=== PATIENT | female | born 1995 | race Caucasian/White ===

== ENCOUNTER 2020-07-25 12:56 | Emergency (ER) | payer OTHER, SELFPAY ==
--- NOTE | ~2020-07-25 | XR_ITS ---
EXAMINATION: XR knee RT min 4V EXAM DATE: 07/25/2020 13:18 INDICATION: Right knee pain x1 wk no injury then knee went out yesterday. TECHNIQUE: Right knee lateral, frontal AP, frontal PA tunnel, sunrise projections. There is no prior study for comparison. FINDINGS: No evidence osteochondral defect or joint body in the right knee joint. There are no acut e fractures or dislocations identified. There is no subcutaneous gas. The soft tissue is unremarkab le. There are no radiopaque foreign bodies. No joint effusion. IMPRESSION: Unremarkable right knee exam. Reviewed, dictated and finalized at location A. L [employer] INSPECTOR
[2020-07-25 13:05] VITALS: BP 132/77; PULSE 93; RESP 16; TEMP 36.6; O2SAT 99
--- NOTE | 2020-07-25 13:39 | ED.GENADULT ---
HPI - General Adult General Chief complaint: Extremity Problem,Nontraumatic Stated complaint: rt knee pain Time Seen by Provider: 07/25/20 13:40 Source: patient and RN notes reviewed Mode of arrival: ambulatory Limitations: no limitations History of Present Illness HPI narrative: 24-year-old female presents with complains of right anterior intermittent knee pain for the past 7 days. Viviana reports increase pain over the past 24 hours in RT knee when she was walking up stairs and knee gave out. Ibuprofen 800mg (last on 07/24/2020 at 14:30) and viviane wrap without relief. No known injury. No radiation of pain. No numbness or tingling, or bleeding. No swelling. No loss of mobility. Exacerbating factor consist of bearing weight. No fever or chills. LMP unknown due to Depo-Provera. Remains active. The patient reports she have not been diagnosed with COVID-19. The patient reports she is not waiting for the results of a COVID-19 lab test. The patient reports she do not have chills, weakness, or fatigue. The patient reports she do not have a new or worsening cough or shortness of breath. Denies chest pain. The patient reports she do not have any rhinorrhea, congestion, sore throat, loss of taste or smell, nausea, vomiting, abdominal pain, and diarrhea. Tolerating po intake well. Denies recent traveling. Denies concerns for COVID-19 or exposures been home with limited outdoor exposure except for essential household needs, work, and return home. At this time, patient is not suspected of having COVID-19. Some parts of this dictation were generated by voice recognition software and may contain typographical and/or grammatical inaccuracies. Related Data Home Medications Medication Instructions Recorded Confirmed medroxyprogesterone [Depo-Provera] mg IM 06/04/19 Allergies Allergy/AdvReac Type Severity Reaction Status Date / Time amoxicillin Allergy Unknown Hives Verified 06/11/19 08:21 cefdinir Allergy Unknown Hives Verified 06/11/19 08:21 clindamycin Allergy Unknown Hives Verified 06/11/19 08:21 latex Allergy Unknown Hives, Verified 06/11/19 08:21 Swelling clavulanic acid Allergy Hives Verified 06/11/19 08:21 [From Augmentin] Review of Systems Review of Systems: Narrative: CONSTITUTIONAL: Denies fever, chills, sweats. EYES: Denies visual changes, redness, discharge. ENT: Denies rhinorrhea, congestion, sore throat, otalgia. CARDIOVASCULAR: Denies chest pain, palpitations, edema. RESPIRATORY: Denies dyspnea, wheezing, cough. GASTROINTESTINAL: Denies abdominal pain, nausea, vomiting, diarrhea. SKIN: Denies rash or itching. MUSCULOSKELETAL: Denies acute back pain or myalgia. Complains of right anterior intermittent knee pain. NEUROLOGIC: Denies numbness or focal weakness. PSYCHIATRIC: Denies anxiety or depression. All other systems reviewed & are unremarkable except as noted in HPI and below. [facility] Past Medical History Medical History (Updated 07/25/20 @ 14:38 by YANICK Art) Abnormal laboratory test result Concussion Cough Elevated LFTs Low TSH level Torn meniscus Left knee Vitamin D deficiency Surgical History Surgical History (Updated 07/25/20 @ 14:38 by YANICK Art) History of arthroscopic knee surgery Left for torn meniscus [place] teeth extracted Family History Family History (Updated 07/25/20 @ 14:39 by YANICK Art) Grandparent Carcinoma of colon Family history of lymphoma Father Alive and well Mother Alive and well Social History Social History (Updated 07/25/20 @ 14:39 by YANICK Art) Smoking status: Never smoker Tobacco type: cigarettes Second hand tobacco smoke exposure: No Additional smoking assessment comments: 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 Alcohol intake: current Substance use: never Substance use type: does not use Living arrangements: other Additional living arrangements comments: Patient and he
== END 2020-07-25 13:59 | disposition home or self-care (01) ==
PROVIDERS: Emergency Provider Nurse Practitioner Family
DX: M25.561 Pain in right knee (principal)
CPT/HCPCS: 73564; 99213; G0463

== ENCOUNTER 2021-04-22 15:05 | Emergency (ER) | payer OTHER, SELFPAY ==
--- NOTE | ~2021-04-22 | XR_ITS ---
EXAMINATION: XR finger 5th RT min 2V DATE: 04/22/2021 15:36 INDICATION: Right hand fifth digit pain. TECHNIQUE: 4 views of right hand fifth digit were obtained. COMPARISON: Right hand radiographs 06/24/2008 FINDINGS: Bone alignment is normal. No fracture. Joint spaces are well maintained. IMPRESSION: 1. No fracture. Reviewed, dictated and finalized at location A. ICAL OB IMPRESSION: 1. No fracture.
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
[2021-04-22 15:12] VITALS: BP 123/76; PULSE 65; RESP 12; TEMP 36.5; O2SAT 100
== END 2021-04-22 16:13 | disposition home or self-care (01) ==
PROVIDERS: Emergency Provider Nurse Practitioner; PCP Family Medicine
DX: J40 Bronchitis, not specified as acute or chronic (principal); J32.9 Chronic sinusitis, unspecified; S69.91XA Unspecified injury of right wrist, hand and finger(s), initial encounter; Z20.822 Contact with and (suspected) exposure to COVID-19; X58.XXXA Exposure to other specified factors, initial encounter
CPT/HCPCS: 73140; 87426; 99213; C9803; G0463

== ENCOUNTER 2021-05-11 10:24 | Emergency (ER) | payer OTHER, SELFPAY ==
[2021-05-11 10:30] VITALS: BP 130/74; PULSE 74; RESP 16; TEMP 36.8; O2SAT 100
--- NOTE | 2021-05-11 10:31 | ED.EYEPROB ---
HPI - Eye Problem General Chief complaint: Eye Problems Stated complaint: Eye Pain Time Seen by Provider: 05/11/21 10:36 Source: patient and RN notes reviewed Mode of arrival: ambulatory Limitations: no limitations History of Present Illness HPI Narrative: 25-year-old female presents with concern for left eye redness, irritation, itchiness, pain, green drainage. Reports she woke up this morning with the symptoms. She reports that she wears contact lenses and occasionally sleeps in them, she did not sleep in her contact lenses last night or the night before. She reports she is not currently wearing her contact lenses so her vision is not corrected. She denies injury or trauma. She reports chronic nasal congestion and rhinorrhea for which she takes [id number] medications. MD chief complaint: eye pain Related Data Allergies Allergy/AdvReac Type Severity Reaction Status Date / Time amoxicillin Allergy Unknown Hives Verified 04/22/21 15:13 cefdinir Allergy Unknown Hives Verified 04/22/21 15:13 clindamycin Allergy Unknown Hives Verified 04/22/21 15:13 latex Allergy Unknown Hives, Verified 04/22/21 15:13 Swelling clavulanic acid Allergy Hives Verified 04/22/21 15:13 [From Augmentin] Review of Systems Review of Systems: CONSTITUTIONAL: Denies malaise, chills, sweats, or fever. EYES: Denies visual changes. Reports left eye redness, irritation, discharge. ENT: Reports chronic rhinorrhea, congestion. Denies sinus pain, otalgia or sore throat. SKIN: Denies skin rash or itching. NEUROLOGIC: Denies numbness, weakness, or headache. PSYCHIATRIC: Denies anxiety or depression. All systems reviewed & are unremarkable except as noted in HPI and below PMFSH Past Medical History Medical History (Updated 05/11/21 @ 10:44 by Shena Parks NP) Abnormal laboratory test result Concussion Cough Elevated LFTs Low TSH level Torn meniscus Left knee Vitamin D deficiency Surgical History Surgical History (Updated 07/25/20 @ 14:38 by YANICK Art) History of arthroscopic knee surgery Left for torn meniscus [place] teeth extracted Family History Family History (Updated 07/25/20 @ 14:39 by YANICK Art) Grandparent Carcinoma of colon Family history of lymphoma Father Alive and well Mother Alive and well Social History Social History (Updated 07/25/20 @ 14:39 by YANICK Art) Smoking status: Never smoker Tobacco type: cigarettes Second hand tobacco smoke exposure: No Additional smoking assessment comments: 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 Substance use: never Substance use type: does not use Additional living arrangements comments: Patient and her boyfriend live together. Gender identity (if verbalized by the patient): Female Sexual Orientation (if Verbalized by the Patient): Straight or Heterosexual Comments At time of signature, agree with nursing past medical, surgical, social and family history. There is no relevant family history pertinent to the presenting complaint Exam Narrative: GENERAL: Well-appearing, well-nourished, and in no acute distress. HEAD: Normocephalic, atraumatic. EYES: PERRLA, right sclera clear, and EOMI. No nystagmus. Left conjunctivae injected, sclera injected, green drainage noted. Upper and lower eyelid unremarkable, no periorbital edema noted ENT: Nares clear, turbinates pink, no rhinorrhea or epistaxis. Mucous membranes moist. TM pearly garza with sharp light reflex bilaterally; no tragal tenderness. NECK: Supple. CHEST: No respiratory distress. Speaks in full sentences. HEART: Regular rate and rhythm. SKIN: Warm, dry, no visible rash. NEURO: Alert and oriented x3. PSYCH: Normal mood and affect Course Course Emergency Course: Patient is aware of diagnosis, understands and agrees to treatment plan. Anticipatory guidance given. Patient agrees to follow-up as di
== END 2021-05-11 10:51 | disposition home or self-care (01) ==
PROVIDERS: Emergency Provider Nurse Practitioner; PCP Family Medicine
DX: H10.32 Unspecified acute conjunctivitis, left eye (principal)
CPT/HCPCS: 99213; G0463

== ENCOUNTER 2021-07-30 17:01 | Emergency (ER) | payer OTHER, SELFPAY ==
[2021-07-30 17:11] VITALS: BP 130/76; PULSE 90; RESP 16; TEMP 36.8; O2SAT 100
[2021-07-30 17:21] VITALS: BP 130/76; PULSE 90; RESP 16; TEMP 36.8; O2SAT 100
--- NOTE | 2021-07-30 17:29 | ED.FEMALEGU ---
HPI - Female Genitourinary General Chief complaint: Urogenital-Female Stated complaint: kidney stone pain left side Time Seen by Provider: 07/30/21 17:30 Source: patient, RN notes reviewed and old records reviewed Mode of arrival: ambulatory Limitations: no limitations History of Present Illness HPI Narrative: 25 year old female who presents to [facility] care with complaints of left flank pain since last evening with patient verbalizing history of having kidney stones in the past. Patient reports that she has not had any fevers, chills or sweats, denies any pain or burning with urination or any frequency of urination, no nausea or vomiting. Patient reports that she has noted urine to be somewhat darker but has not noted any odor. Patient reports that her pain is 7-8/10 and is sharp to left flank area with no suprapubic pain, nausea or vomiting or radiation of pain to her abdomen. MD elicited complaint: flank pain (left) Pertinent past history: other (reports previous kidney stones) Onset (ago): day(s) (1) Location of symptoms: flank (left) Severity scale (1-10): 7 Quality of pain: sharp Consistency: constant Vaginal discharge: none Vaginal bleeding: none Urinary symptoms: Flank Pain Exacerbating factors: none Associated symptoms: denies other symptoms Treatment prior to arrival: none Sexual activity: Yes Patient : No Possible : other (depo shot) Related Data Home Medications Medication Instructions Recorded Confirmed medroxyprogesterone [Depo-Provera 150 mg IM Q3M 07/30/21 07/30/21 Contraceptive] Allergies Allergy/AdvReac Type Severity Reaction Status Date / Time amoxicillin Allergy Unknown Hives Verified 07/30/21 17:12 cefdinir Allergy Unknown Hives Verified 07/30/21 17:12 clindamycin Allergy Unknown Hives Verified 07/30/21 17:12 latex Allergy Unknown Hives, Verified 07/30/21 17:12 Swelling clavulanic acid Allergy Hives Verified 07/30/21 17:12 [From Augmentin] Review of Systems Review of Systems: CONSTITUTIONAL: Denies fever, chills, or sweats. EYES: Denies visual changes, redness, or discharge. ENT: Denies rhinorrhea, congestion, sore throat, or otalgia. CARDIOVASCULAR: Denies chest pain, palpitations, or edema. RESPIRATORY: Denies cough or dyspnea. GASTROINTESTINAL: Denies abdominal pain, nausea, vomiting, or diarrhea. GENITOURINARY: Denies dysuria or hematuria, states that urine is darker in color, denies any blood or any odor SKIN: Denies rash or itching. MUSCULOSKELETAL: Positive for left flank pain, no joint pain, or myalgia. NEUROLOGIC: Denies headache, numbness, or weakness. PSYCHIATRIC: Denies anxiety or depression. All systems reviewed & are unremarkable except as noted in HPI and below PMFSH Past Medical History Medical History Abnormal laboratory test result Concussion Cough Elevated LFTs Low TSH level Surveillance for Depo-Provera contraception Torn meniscus Left knee Vitamin D deficiency Surgical History Surgical History History of arthroscopic knee surgery Left for torn meniscus [place] teeth extracted Family History Family History Grandparent Carcinoma of colon Family history of lymphoma Father Alive and well Mother Alive and well Social History Social History Smoking status: Never smoker Tobacco type: cigarettes Second hand tobacco smoke exposure: No Additional smoking assessment comments: 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 Substance use: never Substance use type: does not use Additional living arrangements comments: Patient and her boyfriend live together. Gender identity (if verbalized by the patient): Female Sexual Orientation (if Verbalized by the Patient
== END 2021-07-30 17:52 | disposition home or self-care (01) ==
PROVIDERS: Emergency Provider Registered Nurse
DX: R10.9 Unspecified abdominal pain (principal); Z87.442 Personal history of urinary calculi
CPT/HCPCS: 81003; 99213; G0463

== ENCOUNTER 2022-03-25 14:01 | Emergency (ER) | payer OTHER, SELFPAY ==
[2022-03-25 14:08] VITALS: BP 135/86; PULSE 81; RESP 20; TEMP 36.8; O2SAT 100
--- NOTE | 2022-03-25 14:11 | ED.URI ---
HPI - URI/Sore Throat General Chief Complaint: Upper Respiratory Infection Stated Complaint: CONGESTION/VOMITING/BODY ACHES/CHILLS Time Seen by Provider: 03/25/22 14:11 Source: patient Mode of arrival: ambulatory Limitations: no limitations History of Present Illness HPI Narrative: 26-year-old female presents with complaint of congestion, cough, body aches chills, nausea for 5 days. Afebrile. Denies diarrhea. Reports that she did vomit could be due to not eating. No chest pain or shortness of breath. No sick contacts. Started taking DayQuil NyQuil severe last night. All systems reviewed and negative except as noted above. Related Data Allergies Allergy/AdvReac Type Severity Reaction Status Date / Time amoxicillin Allergy Unknown Hives Verified 03/25/22 14:09 cefdinir Allergy Unknown Hives Verified 03/25/22 14:09 clindamycin Allergy Unknown Hives Verified 03/25/22 14:09 latex Allergy Unknown Hives, Verified 03/25/22 14:09 Swelling clavulanic acid Allergy Hives Verified 03/25/22 14:09 [From Augmentin] Review of Systems Review of Systems: CONSTITUTIONAL: Denies fever. Reports chills, or sweats, fatigue. EYES: Denies visual changes, redness, or discharge. ENT:. Reports rhinorrhea, congestion, sore throat, or otalgia. CARDIOVASCULAR: Denies chest pain, palpitations, or edema. RESPIRATORY: Reports cough. Denies dyspnea. GASTROINTESTINAL: Denies abdominal pain, nausea, vomiting, or diarrhea. GENITOURINARY: Denies dysuria or hematuria. SKIN: Denies rash or itching. MUSCULOSKELETAL: Denies back pain, joint pain. Reports myalgia. NEUROLOGIC: Denies headache, numbness, or weakness. PSYCHIATRIC: Denies anxiety or depression. All other systems reviewed are negative, except as documented in HPI. [facility] Past Medical History Medical History Abnormal laboratory test result Concussion Cough Elevated LFTs Low TSH level Surveillance for Depo-Provera contraception Torn meniscus Left knee Vitamin D deficiency Surgical History Surgical History History of arthroscopic knee surgery Left for torn meniscus [place] teeth extracted Family History Family History Grandparent Carcinoma of colon Family history of lymphoma Father Alive and well Mother Alive and well Social History Social History (Updated 09/13/21 @ 09:05 by Luisa Nichols MA) Smoking status: Never smoker Tobacco type: cigarettes Second hand tobacco smoke exposure: No Additional smoking assessment comments: 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 There is no relevant family history pertinent to the presenting complaint. Exam Narrative: GENERAL: This is a well-nourished, well-developed patient, in no apparent distress. HEAD: normocephalic, atraumatic. EYES: PERRL. Sclera clear/white. Vision is grossly intact. EARS: External ears normal, auditory canals clear and without drainage, TMs normal without perforation. Hearing grossly intact. NOSE: External nose normal with clear nasal drainage, no erythema or swelling to the ears. THROAT: Mucous membranes moist, mild erythema to posterior pharynx. NECK: Neck supple, non-tender without lymphadenopathy, masses or thyromegaly. CARDIOVASCULAR: Regular rate and rhythm without murmurs, gallops, or rubs. RESPIRATORY: Clear to auscultation. Breath sounds equal bilaterally. No wheezes, rales, or rhonchi. SKIN: warm, Dry, intact with no suspicious lesions or jayme
== END 2022-03-25 14:24 | disposition home or self-care (01) ==
PROVIDERS: Emergency Provider Nurse Practitioner Family
DX: J06.9 Acute upper respiratory infection, unspecified (principal)
CPT/HCPCS: 99211; G0463

== ENCOUNTER 2023-03-31 03:56 | Emergency (ER) | payer BC, SELFPAY ==
--- NOTE | ~2023-03-31 | XR_ITS ---
Right foot Technique: AP, oblique, and lateral views were obtained. Clinical History: Injury Findings: There is an oblique, minimally displaced fracture of the distal portion of the fifth proxim al phalanx. No intra-articular extension. Joint spaces are preserved without erosive or degenerative change. Soft tissues are unremarkable. Impression: Oblique, minimally displaced fracture the distal shaft of the fifth proximal phalanx. Reviewed, dictated and finalized at location . Impression: Oblique, minimally displaced fracture the distal shaft of the fifth proximal ph alanx.
[2023-03-31 04:00] VITALS: BP 138/99; PULSE 58; RESP 20; TEMP 36.7; O2SAT 99
--- NOTE | 2023-03-31 04:34 | ED.GENADULT ---
HPI - General Adult General Chief complaint: Extremity Injury, Lower Stated complaint: toe injury Time Seen by Provider: 03/31/23 04:11 History of Present Illness HPI narrative: Patient was 7-year-old female who presents the emergency department with chief complaint of right foot pain. Patient reports that she hit her right little toe against a kitchen island and reports that she has pain and swelling in her right little toe. Patient reports pain with range of motion pain with walking. Related Data Home Medications Medication Instructions Recorded Confirmed lisdexamfetamine 20 mg capsule mg PO 11/21/22 03/16/23 (Vyvanse) Allergies Allergy/AdvReac Type Severity Reaction Status Date / Time amoxicillin Allergy Unknown Hives Verified 03/31/23 04:05 cefdinir Allergy Unknown Hives Verified 03/31/23 04:05 clindamycin Allergy Unknown Hives Verified 03/31/23 04:05 latex Allergy Unknown Hives, Verified 03/31/23 04:05 Swelling clavulanic acid Allergy Hives Verified 03/31/23 04:05 [From Augmentin] Review of Systems Review of Systems: A 10 system review of systems was completed on the patient and is negative except for what is stated in the HPI. Nursing and ancillary documentation was reviewed. [facility]LY [facility], [facility] Past Medical History Medical History Abnormal laboratory test result Concussion Cough Elevated LFTs Low TSH level Surveillance for Depo-Provera contraception Torn meniscus Left knee Vitamin D deficiency Surgical History Surgical History History of arthroscopic knee surgery Left for torn meniscus [place] teeth extracted Family History Family History Grandparent Carcinoma of colon Family history of lymphoma Father Alive and well Mother Alive and well Social History Social History Smoking status: Never smoker Tobacco type: cigarettes Second hand tobacco smoke exposure: No Additional smoking assessment comments: 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 HEAD: Normocephalic, atraumatic. EYES: PERRLA and EOMI. ENT: Nares clear, no rhinorrhea or epistaxis. Mucous membranes moist. NECK: Supple. CHEST: Clear to auscultation. No respiratory distress. HEART: Regular rate and rhythm. No murmur heard. Normal peripheral pulses. ABDOMEN: Soft, nontender, nondistended, normal active bowel sounds. EXTREMITIES: Normal range of motion. No edema. There is tenderness to palpation at the base of the fifth proximal phalanx SKIN: Warm, dry, no rash. NEURO: No focal deficits. Alert and oriented x3. PSYCH: Normal mood and affect. Course Vital Signs Vital signs: Vital Signs Temperature 36.7 C 03/31/23 04:00 Pulse Rate 58 L 03/31/23 04:00 Respiratory Rate 20 03/31/23 04:00 Blood Pressure 138/99 H 03/31/23 04:00 Pulse Oximetry 99 03/31/23 04:00 Oxygen Delivery Room Air 03/31/23 04:00 Temperature 36.7 C 03/31/23 04:00 Pulse Rate 58 L 03/31/23 04:00 Respiratory Rate 20
== END 2023-03-31 04:54 | disposition home or self-care (01) ==
PROVIDERS: Emergency Provider Emergency Medicine; PCP Internal Medicine
DX: S92.511A Displaced fracture of proximal phalanx of right lesser toe(s), initial encounter for closed fracture (principal); W22.09XA Striking against other stationary object, initial encounter
CPT/HCPCS: 73630; 99284

== ENCOUNTER 2023-07-06 16:35 | Emergency (ER) | payer BC, SELFPAY ==
--- NOTE | 2023-07-06 16:39 | ED.GENADULT ---
HPI - General Adult General Chief complaint: Upper Respiratory Infection Stated complaint: COUGH/HEADACHE/RUNNY NOSE/SORE THROAT Source: patient, RN notes reviewed and old records reviewed Mode of arrival: ambulatory Limitations: no limitations History of Present Illness HPI narrative: 27-year-old female presents to [facility] with complaint of cough, sinus drainage, sinus pressure and general malaises that started Monday. Patient is not taking anything for symptoms. Patient denies chest pain, shortness of breath, dizziness, weakness. Related Data Home Medications Medication Instructions Recorded Confirmed lisdexamfetamine 20 mg capsule mg PO 11/21/22 04/10/23 (Vyvanse) azelastine 137 mcg (0.1 %) nasal intranasal 07/06/23 spray aerosol cetirizine 10 mg tablet mg 07/06/23 montelukast 10 mg tablet mg 07/06/23 Allergies Allergy/AdvReac Type Severity Reaction Status Date / Time amoxicillin Allergy Unknown Hives Verified 07/06/23 16:40 cefdinir Allergy Unknown Hives Verified 07/06/23 16:40 clindamycin Allergy Unknown Hives Verified 07/06/23 16:40 latex Allergy Unknown Hives, Verified 07/06/23 16:40 Swelling clavulanic acid Allergy Hives Verified 07/06/23 16:40 [From Augmentin] Review of Systems Constitutional: Constitutional: Reports no additional constitutional complaints, Denies body ache(s), Denies chills, Reports fatigue, Denies fever(s) and Denies headache(s) Eyes: Eyes: Reports no additional eye complaints and Denies blurry vision ENT: Reports system reviewed and no additional complaints, except as documented, Denies vertigo, Denies dizziness, Denies ear discharge, Denies otalgia, Denies facial pain, Denies headache(s), Denies nasal congestion, Reports nasal discharge, Denies sinus pain, Reports sinus pressure and Denies sore throat Cardiovascular: Cardiovascular: Reports no additional cardiovascular complaints, Denies chest pain, Denies chest pain at rest, Denies rapid heart rate and Denies dyspnea Respiratory: Respiratory: Reports no additional respiratory complaints, Reports chest congestion, Reports cough, Denies pain on inspiration, Denies pain with cough and Denies dyspnea Gastrointestinal: Gastrointestinal: Denies abdominal pain, Denies diarrhea, Denies nausea and Denies vomiting Integumentary/Breasts: Skin/Breast: Denies rash Neurologic: Reports system reviewed and no additional complaints, except as documented, Denies vertigo, Denies dizziness and Denies headache(s) Endocrine: Endocrine: Denies fatigue PMFSH Past Medical History Medical History Abnormal laboratory test result Concussion Cough Elevated LFTs Low TSH level Surveillance for Depo-Provera contraception Torn meniscus Left knee Vitamin D deficiency Surgical History Surgical History History of arthroscopic knee surgery Left for torn meniscus [place] teeth extracted Family History Family History Grandparent Carcinoma of colon Family history of lymphoma Father Alive and well Mother Alive and well Social History Social History Smoking status: Never smoker Tobacco type: cigarettes Second hand tobacco smoke exposure: No Additional smoking assessment comments: Patient works at a [employer] setting. Alcohol intake: current Alcohol use details: Social. Substance use: never Substance use type: does not use Lack of Transportation: No Lack of Food: Never True Current Housing: I Have Housing Concerned About Future Housing: No Difficulty Paying Gas/Electric Bills: No Difficulty Paying for Meds: No Currently Unemployed: No Education: Bachelor's Degree Difficulty w/ Childcare or Family Care: No Living arrangements: alone Occupation/Education: occupation [employer]
[2023-07-06 16:46] VITALS: BP 116/75; PULSE 105; RESP 16; TEMP 37.1; O2SAT 99
== END 2023-07-06 17:06 | disposition home or self-care (01) ==
PROVIDERS: Emergency Provider Registered Nurse; PCP Internal Medicine
DX: B34.9 Viral infection, unspecified (principal); Z20.822 Contact with and (suspected) exposure to COVID-19
CPT/HCPCS: 87426; 87804; 99213; G0463

== ENCOUNTER 2023-10-08 11:15 | Emergency (ER) | payer BC, SELFPAY ==
--- NOTE | ~2023-10-08 | XR_ITS ---
EXAMINATION: [id number] DATE: 10/08/2023 12:18 INDICATION: Right posterior neck pain. Fall. TECHNIQUE: 5 views of cervical spine were obtained. 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 There is 5 d egrees dextrocurvature cervicothoracic spine. Vertebral body heights and intervertebral disc heights are normal. The facet joints are normal. No central canal stenosis or prevertebral soft tissue swelli ng. IMPRESSION: 1. No acute fracture. Reviewed, dictated and finalized at location A. IMPRESSION: 1. No acute fracture.
[2023-10-08 11:25] VITALS: BP 132/82; PULSE 91; RESP 16; TEMP 36.3; O2SAT 99
--- NOTE | 2023-10-08 12:02 | ED.FALL ---
HPI - Fall General Chief Complaint: Neck Pain/Injury Stated Complaint: Fall;Head/Neck pain Time Seen by Provider: 10/08/23 11:19 Source: patient Mode of arrival: ambulatory Limitations: no limitations History of Present Illness HPI Narrative: Viviana is a 28-year-old female patient presenting to the clinic today with complaints of a ground level fall onto concrete that occurred around 10:00pm last night. She reports she was coming home from work and had a heavy backpack on and tripped and hit her face on concrete. She denies any loss of consciousness but is having some right-sided neck pain and is concerned that she may have injured her neck worse. History of cervical spine fracture. States she has seen a specialist about this tomorrow. Has a lip laceration and abrasions to the scalp, left arm,face, and on the right knee. Related Data Home Medications Medication Instructions Recorded Confirmed lisdexamfetamine 20 mg capsule 20 mg PO DAILY 11/21/22 10/08/23 (Vyvanse) azelastine 137 mcg (0.1 %) nasal 1 spray intranasal BID 07/06/23 10/08/23 spray aerosol cetirizine 10 mg tablet 10 mg PO DAILY 07/06/23 10/08/23 montelukast 10 mg tablet 10 mg PO DAILY 07/06/23 10/08/23 Allergies Allergy/AdvReac Type Severity Reaction Status Date / Time amoxicillin Allergy Unknown Hives Verified 10/08/23 12:07 cefdinir Allergy Unknown Hives Verified 10/08/23 12:07 clindamycin Allergy Unknown Hives Verified 10/08/23 12:07 latex Allergy Unknown Hives, Verified 10/08/23 12:07 Swelling clavulanic acid Allergy Hives Verified 10/08/23 12:07 [From Augmentin] Review of Systems Review of Systems: Pertinent positives per HPI. Patient denies any fever, chills, rash, headache, visual changes, dizziness, cough, runny nose, sore throat, shortness of breath, chest pain, palpitations, nausea, vomiting, diarrhea, constipation, abdominal pain, or any urinary issues. PMFSH Past Medical History Medical History Abnormal laboratory test result Concussion Cough Elevated LFTs Low TSH level Surveillance for Depo-Provera contraception Torn meniscus Left knee Vitamin D deficiency Surgical History Surgical History History of arthroscopic knee surgery Left for torn meniscus [place] teeth extracted Family History Family History Grandparent Carcinoma of colon Family history of lymphoma Father Alive and well Mother Alive and well Social History Social History Smoking status: Never smoker Tobacco type: cigarettes Second hand tobacco smoke exposure: No Additional smoking assessment comments: 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 There is no relevant family history pertinent to the patient complaint. Exam Narrative: General: Well-developed, well nourished, in no apparent distress Head: Normocephalic Cardio: Regular rate and rhythm, s1 and s2 normal, no murmur appreciated. Resp: Clear to auscultati
[2023-10-08] MEDS: TETANUS,DIPHTHERIA,AC PERTUSSIS ADULT (0.5 ML) BOOSTRIX IM (12:39)
== END 2023-10-08 12:55 | disposition home or self-care (01) ==
PROVIDERS: Emergency Provider Nurse Practitioner Family; PCP Internal Medicine
DX: S50.812A Abrasion of left forearm, initial encounter (principal); S40.812A Abrasion of left upper arm, initial encounter; S80.211A Abrasion, right knee, initial encounter; S01.511A Laceration without foreign body of lip, initial encounter; S16.1XXA Strain of muscle, fascia and tendon at neck level, initial encounter; S09.90XA Unspecified injury of head, initial encounter; W01.0XXA Fall on same level from slipping, tripping and stumbling without subsequent striking against object, initial encounter; Z23 Encounter for immunization
CPT/HCPCS: 72040; 90471; 90715; 99213; G0463

== ENCOUNTER 2024-04-25 11:51 | Emergency (ER) | payer BC, SELFPAY ==
[2024-04-25 12:00] VITALS: BP 141/84; PULSE 86; RESP 16; TEMP 36.2; O2SAT 100
--- NOTE | 2024-04-25 12:11 | ED.EYEPROB ---
HPI - Eye Problem General Chief complaint: Eye Problems Stated complaint: Eye Irriation Time Seen by Provider: 04/25/24 12:11 Source: patient, RN notes reviewed and old records reviewed Mode of arrival: ambulatory Limitations: no limitations History of Present Illness HPI Narrative: 28-year-old female to [facility] with complaint redness and swelling to left upper eyelid for several days. Patient denies injury, illness, visual changes, foreign body, pain. Patient resting comfortably in exam room in no acute distress. Related Data Home Medications ?Medication ?Instructions ?Recorded ?Confirmed ?Last Taken ?Type lisdexamfetamine 20 mg capsule 20 mg PO DAILY 11/21/22 04/25/24 Unknown History (Vyvanse) azelastine 137 mcg (0.1 %) nasal 1 spray intranasal BID 07/06/23 04/25/24 Unknown History spray cetirizine 10 mg tablet 10 mg PO DAILY 07/06/23 04/25/24 Unknown History montelukast 10 mg tablet 10 mg PO DAILY 07/06/23 04/25/24 Unknown History Allergies Allergy/AdvReac Type Severity Reaction Status Date / Time amoxicillin Allergy Unknown Hives Verified 04/25/24 12:01 cefdinir Allergy Unknown Hives Verified 04/25/24 12:01 clindamycin Allergy Unknown Hives Verified 04/25/24 12:01 latex Allergy Unknown Hives, Verified 04/25/24 12:01 Swelling clavulanic acid (From Allergy Hives Verified 04/25/24 12:01 Augmentin) Review of Systems Review of Systems: All systems reviewed & are unremarkable except as noted in HPI and below Constitutional: Constitutional: Reports no additional constitutional complaints Eyes: Eyes: Reports as per HPI, Denies change in vision, Denies diplopia, Denies eye discharge, Denies other visual disturbances and Reports other ( Redness and swelling left upper eyelid) ENT: Reports system reviewed and no additional complaints, except as documented Cardiovascular: Cardiovascular: Reports no additional cardiovascular complaints, Denies chest pain and Denies dyspnea Respiratory: Respiratory: Reports no additional respiratory complaints, Denies cough and Denies dyspnea Musculoskeletal: Musculoskeletal: Reports no additional musculoskeletal complaints Neurologic: Reports system reviewed and no additional complaints, except as documented Psychiatric: Psychiatric: Reports no additional psychiatric complaints PMFSH Past Medical History Medical History Surveillance for Depo-Provera contraception Torn meniscus Left knee Elevated LFTs Low TSH level Vitamin D deficiency Cough Abnormal laboratory test result Concussion Surgical History Surgical History [place] teeth extracted History of arthroscopic knee surgery Left for torn meniscus Family History Family History Grandparent Carcinoma of colon Family history of lymphoma Father Alive and well Mother Alive and well Social History Social History Smoking status: Never smoker Tobacco type: cigarettes Second hand tobacco smoke exposure: No Additional smoking assessment comments: 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 There is no relevant family history pertinent to the patient complaint. Exam Const: General: cooperative, healthy appearing, comfortable, no acute distress, alert and well nourished Nutritional Appearance: well nourished Orientation/consciousness: patient oriented x3 Limitations: no limitations HENMT: Head: normal to inspection Ears: external ears normal Face/Nose/Sinus: Normal external nose present, Normal nares present, normal facial exam, No erythema and No edema Face and sinus: normal facial exam, no erythema and no edema Mouth: Yes Normal oral and palatal mucosa present Eyes: Visual Alvarado: normal visual alvarado by confrontation Alignment and Position: alignment normal and position normal Periorbital: periorbital findings normal Eyelids: eyelid abnormality left upper eyelid erythema and swelling Neck: Neck: normal visual inspection, full ROM and no meningeal signs Chest: Chest palpation & inspection: normal inspection of the chest Resp: Effort & Inspection: normal respiratory effort and able to speak in complete sentences Cardio: Jugular venous distension: no JVD Rate: regular rate Rhythm: regular rhythm Back/Spine/Pelvis: Cervical Spine: cervical ROM normal Skin: General skin exam: normal color, no rashes or lesions noted and turgor normal Neuro: General: patient oriented x3, gait normal, moves all extremities and no meningeal signs Speech: normal speech Gait exam (Neuro): Normal gait present Extrem: General: normal to inspection, full ROM and capillary refill normal Psych: Appearance: grossly normal and well kempt Course Course Emergency Course: Some parts of this dictation were generated by voice recognition software and may contain typographical and/or grammatical inaccuracies. Level of Care: Express Care Visit Vital Signs Vital signs: Vital Signs Temperature 36.2 C L 04/25/24 12:00 Pulse Rate 86 04/25/24 12:00 Respiratory Rate 16 04/25/24 12:00 Blood Pressure 141/84 H 04/25/24 12:00 Pulse Oximetry 100 04/25/24 12:00 Temperature 36.2 C L 04/25/24 12:00 Pulse Rate 86 04/25/24 12:00 Respiratory Rate 16 04/25/24 12:00 Blood Pressure 141/84 H 04/25/24 12:00 Pulse Oximetry 100 04/25/24 12:00 reviewed MDM - Eye Problem MDM Narrative Medical decision making narrative: 28-year-old female to [facility] Care with complaint redness and swelling to left upper eyelid for several days. Patient denies injury, illness, visual changes, foreign body, pain. Patient resting comfortably in exam room in no acute distress. on exam, erythematous, edematous nodule to medial left eyelid. Consistent with hordeolum. exam otherwise unremarkable Patient is sitting comfortably in exam room nontoxic in appearance. Patient appropriate for outpatient treatment and follow-up. Discharge instructions reviewed with patient, as well as provided in writing per nursing staff. The instructions also include specific and strict return/GO TO THE ER as well as f/u information. All questions have been answered, and the patient deny any further questions with discharge and discharge plan. Some parts of this dictation were generated by voice recognition software and may contain typographical and/or grammatical inaccuracies. Differential Diagnosis Differential diagnosis: Likely corneal abrasion, conjunctivitis, acute iritis, hyphema, periorbital cellulitis, subconjunctival hemorrhage, glaucoma, corneal ulcer and ruptured globe Discharge Plan Discharge Clinical Impression: Hordeolum externum left upper eyelid Patient Disposition: Home, Self-Care Condition: Stable Instructions: [place] (ED) Additional Instructions: Please review attached instruction regarding [place]. Please implement suggestions as tolerated. Please continue to keep excellent hygiene around the eye area. For new or worsening symptoms please go directly to the emergency department Patient Language: Bulgarian Prescriptions: No Action cetirizine 10 mg tablet 10 mg PO DAILY montelukast 10 mg tablet 10 mg PO DAILY azelastine 137 mcg (0.1 %) aerosol,spray 1 spray INTRANASAL BID fluconazole 150 mg tablet 150 mg PO Q72H Qty: 2 3RF Vyvanse 20 mg capsule 20 mg PO DAILY medroxyprogesterone 150 mg/mL syringe 150 mg IM [id number] Qty: 1 3RF Follow-up/Referrals: UNKNOWN,DOCTOR [Primary Care Provider] - Stand Alone Forms: Work/School Release IP
== END 2024-04-25 12:32 | disposition home or self-care (01) ==
PROVIDERS: Emergency Provider Nurse Practitioner Family
DX: H00.014 Hordeolum externum left upper eyelid (principal)
CPT/HCPCS: 99211; G0463

== ENCOUNTER 2024-05-14 11:41 | Emergency (ER) | payer BC, SELFPAY ==
[2024-05-14 11:51] VITALS: BP 125/89; PULSE 96; RESP 16; TEMP 36.8; O2SAT 100
--- NOTE | 2024-05-14 12:15 | ED.EYEPROB ---
HPI - Eye Problem General Chief complaint: Eye Problems Stated complaint: EYES SWELLING/SOB Time Seen by Provider: 05/14/24 12:00 Source: patient Mode of arrival: ambulatory Limitations: no limitations History of Present Illness HPI Narrative: Viviana is a 28-year-old female patient presenting to the clinic today with multiple complaints complaints- bilateral eye swelling, lip swelling, and shortness of breath. Also reporting some diarrhea over the last 2 days. Denies any fevers, chills, or body aches. Does have a nonproductive cough. Denies any URI symptoms. No environmental changes, medications, or foods. Related Data Home Medications ?Medication ?Instructions ?Recorded ?Confirmed ?Last Taken ?Type lisdexamfetamine 20 mg capsule 20 mg PO DAILY 11/21/22 04/25/24 Unknown History (Shahriar) azelastine 137 mcg (0.1 %) nasal 1 spray intranasal BID 07/06/23 04/25/24 Unknown History spray cetirizine 10 mg tablet 10 mg PO DAILY 07/06/23 04/25/24 Unknown History montelukast 10 mg tablet 10 mg PO DAILY 07/06/23 04/25/24 Unknown History Allergies Allergy/AdvReac Type Severity Reaction Status Date / Time amoxicillin Allergy Unknown Hives Verified 04/25/24 12:01 cefdinir Allergy Unknown Hives Verified 04/25/24 12:01 clindamycin Allergy Unknown Hives Verified 04/25/24 12:01 latex Allergy Unknown Hives, Verified 04/25/24 12:01 Swelling clavulanic acid (From Allergy Hives Verified 04/25/24 12:01 Augmentin) Review of Systems Review of Systems: Pertinent positives per HPI. Patient denies any fever, chills, rash, headache, visual changes, dizziness, runny nose, sore throat, chest pain, palpitations, nausea, vomiting, constipation, abdominal pain, or any urinary issues. [facility] Past Medical History Medical History Surveillance for Depo-Provera contraception Torn meniscus Left knee Elevated LFTs Low TSH level Vitamin D deficiency Cough Abnormal laboratory test result Concussion Surgical History Surgical History [place] teeth extracted History of arthroscopic knee surgery Left for torn meniscus Family History Family History Grandparent Carcinoma of colon Family history of lymphoma Father Alive and well Mother Alive and well Social History Social History Smoking status: Never smoker Tobacco type: cigarettes Second hand tobacco smoke exposure: No Additional smoking assessment comments: 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 There is no relevant family history pertinent to the patient complaint. Exam Narrative: General: Well-developed, well nourished, in no apparent distress Head: Normocephalic, atraumatic Eyes: Pupils equally round and reactive to light bilaterally, EOM intact, sclera and conjunctive clear, no discharge, bilateral upper mid lids swollen and tender with internal pustule Ears: TMs intact and clear, ear canals clear, no drainage, grossly hearing normal. Nose: Nares patent, no discharge, no inflammation, no sinus tenderness. Mouth: Oropharynx without lesions or masses, good dentition, MM dry. Bottom lip very dry and cracking was some yellow crusting. Neck: Supple, trachea midline, no enlargement of anterior or posterior cervical nodes, no thyroid masses or goiter palpable. Cardio: Regular rate and rhythm, s1 and s2 normal, no murmur appreciated. Resp: Clear to auscultation bilaterally anteriorly and posteriorly, no rhonchi, rales, wheezing or rubs Abdomen: Soft, pliable, bowel sounds present in all quadrants, non-tender to palpation, no organomegly, no CVAT tenderness. Course Course Emergency Course: Portions of this record may have been created with voice recognition software. Level of Care: Express Care Visit Vital Signs Vital signs: Vital Signs Temperature 36.8 C 05/14/24 11:51 Pulse Rate 96 05/14/24 11:51 Respiratory Rate 16 05/14/24 11:51 Blood Pressure 125/89 05/14/24 11:51 Pulse Oximetry 100 05/14/24 11:51 Temperature 36.8 C 05/14/24 11:51 Pulse Rate 96 05/14/24 11:51 Respiratory Rate 16 05/14/24 11:51 Blood Pressure 125/89 05/14/24 11:51 Pulse Oximetry 100 05/14/24 11:51 Vital signs reviewed MDM - Eye Problem MDM Narrative Medical decision making narrative: At the time of visit patient is resting comfortably on the exam table. Patient appears to be nontoxic. Plan: I suspect patient has bilateral internal styes 1 to each upper eyelid. Does have dry lower lip mucous membranes with some yellow crusting-possibly impetigo. Has nonproductive cough with some mild shortness of breath. Lung sounds are clear. Will place her on albuterol inhaler. No obvious sign allergic reaction-no drooling, able to speak in full sentences without taking breath in between words, patient also has acute diarrhea-recommend taking the Imodium. Vital signs are stable. Supportive measures were discussed with the patient and they voiced understanding discharge instructions and agrees to treatment plan. Return precautions reviewed Differential Diagnosis Differential diagnosis: Likely corneal abrasion, conjunctivitis, acute iritis, hyphema, periorbital cellulitis, subconjunctival hemorrhage, glaucoma, corneal ulcer and ruptured globe Discharge Plan Discharge Clinical Impression: Acute diarrhea, Bronchitis Internal hordeolum Qualifiers: Laterality: unspecified laterality Qualified Code(s): H00.029 - Hordeolum internum unspecified eye, unspecified eyelid Patient Disposition: Home, Self-Care Condition: Stable Instructions: Antibiotic Form, Stye (ED), Acute Bronchitis (ED), Acute Diarrhea (ED) Additional Instructions: Take prescription medications only as prescribed-polymyxin eyedrops to bilateral eyes, mupirocin cream to lower lip, and albuterol inhaler as needed for cough shortness of breath or wheeze Apply warm moist compresses to your eyes every 2-4 hours Increase fluids and stay well hydrated Tylenol/motrin for pain/fever Flonase and OTC antihistamines as directed Vicks vapor rub to open sinuses Sinus rinses for congestion Cepacol spray, cough drops, throat lozenges, warm tea with honey/lemon, gargle salt water to soothe throat BRAT diet for diarrhea May take Imodium as needed for diarrhea Clear liquids x 24 hours then advance as tolerated for nausea/vomiting Go to the ED if you develop a worsening in your condition- high fever not controlled by Tylenol or Motrin, dehydration, weakness, lethargy, shortness of breath, or chest pain. Follow up with your PCP in 3-5 days if symptoms persist. Patient Language: Hebrew Prescriptions: New polymyxin B sulf-trimethoprim 10,000 unit- 1 mg/mL drops 1 drp EACH EYE Q3H 7 Days Qty: 10 0RF Rx Instructions: while awake; do not exceed 6 doses in 24 hours mupirocin 2 % ointment 1 applic topical BID 7 Days Qty: 22 0RF albuterol sulfate 90 mcg/actuation HFA aerosol inhaler 2 puff inhalation Q4-6H PRN (Reason: shortness of breath or wheezing) 30 Days Qty: 8.5 0RF No Action cetirizine 10 mg tablet 10 mg PO DAILY montelukast 10 mg tablet 10 mg PO DAILY azelastine 137 mcg (0.1 %) aerosol,spray 1 spray INTRANASAL BID fluconazole 150 mg tablet 150 mg PO Q72H Qty: 2 3RF Vyvanse 20 mg capsule 20 mg PO DAILY medroxyprogesterone 150 mg/mL syringe 150 mg IM [id number] Qty: 1 3RF Follow-up/Referrals: Ammy,MD Chasity [Primary Care Provider] - Stand Alone Forms: Work/School Release IP Time of Disposition: 12:13 Quality NIHSS Nursing Documentation ED NIHSS nursing documentation: reviewed/agree
== END 2024-05-14 12:19 | disposition home or self-care (01) ==
PROVIDERS: Emergency Provider Nurse Practitioner Family; PCP Internal Medicine
DX: J40 Bronchitis, not specified as acute or chronic (principal); H00.029 Hordeolum internum unspecified eye, unspecified eyelid; R19.7 Diarrhea, unspecified
CPT/HCPCS: 99213; G0463

== ENCOUNTER 2024-12-03 20:18 | Emergency (ER) | payer BC, SELFPAY ==
--- NOTE | ~2024-12-03 | CT_ITS ---
EXAMINATION: CT abdomen pelvis w con DATE: 12/03/2024 21:40 INDICATION: Right lower quadrant abdominal pain TECHNIQUE: Computed tomography (CT) of the abdomen and pelvis was performed with 100 mL Omnipaque-350 intravenous contrast. Automated exposure control and iterative reconstruction technique were employe d. The dose-length product was 425.05 mGy-cm. COMPARISON: 10/08/2009 FINDINGS: Lung bases are clear. Heart size normal. No pericardial or pleural effusion. Focal hepatic steatosis at the ligamentum teres. Gallbladder, spleen, pancreas, bilateral adrenal glands and kidneys are norm al. Bowels including the appendix are normal. Bladder is normal. Anteverted uterus is normal. Tampon within the vaginal vault. 1.3 cm right adnexal cyst/follicle. No free intraperitoneal gas or fluid. N o pathologically enlarged abdominal or pelvic lymphadenopathy. Small fat-containing umbilical hernia. Mild thoracolumbar dextroscoliosis with mild spondylosis. Multiple Schmorl's nodes in the lower thor acic and upper lumbar spine. IMPRESSION: 1. No acute intra-abdominal/pelvic process. Specifically the gallbladder and appendix are normal. Reviewed, dictated and finalized at location A. IMPRESSION: 1. No acute intra-abdominal/pelvic process. Specifically the gallbladder and ap pendix are normal.
--- NOTE | ~2024-12-03 | US_ITS ---
EXAMINATION: US venous doppler LE RT DATE: 12/03/2024 22:26 INDICATION: Right lower limb pain TECHNIQUE: Grayscale ultrasound images without and with compression and Doppler ultrasound images of the right lower extremity veins were obtained. COMPARISON: None. FINDINGS: The visualized portions of right common femoral vein, profunda (deep) femoral vein, femoral vein, pop liteal vein, peroneal trunk, posterior tibial veins, peroneal veins and greater saphenous vein outflo w are patent. IMPRESSION: 1. No deep venous thrombosis in the right lower limb. Reviewed, dictated and finalized at location A.
--- NOTE | ~2024-12-03 | US_ITS ---
EXAMINATION: US pelvic complete DATE: 12/03/2024 22:26 INDICATION: Right lower quadrant abdominal pain. TECHNIQUE: Multiple transabdominal and endovaginal sonographic images of the pelvis were obtained. COMPARISON: None. FINDINGS: The uterus measures 5.9 x 2.3 x 3.7 cm. The endometrial complex measures 3 mm in thickness. The righ t ovary measures 2.1 x 1.5 x 2.2 cm. 1.0 cm right ovarian cyst/follicle. The left ovary measures 2.9 x 1.5 x 1.2 cm. Vascular flow arterial waveforms identified at both ovaries on color Doppler. There i s a minimal amount of likely physiologic free fluid in the pelvis. IMPRESSION: 1. Normal pelvic ultrasound. Reviewed, dictated and finalized at location A.
[2024-12-03 20:20] VITALS: BP 155/93; PULSE 107; RESP 17; TEMP 37.2; O2SAT 100
--- OUTSIDE RECORDS SUMMARY | 2024-12-03 20:21 | XMS_ITS | Encounter Summary ---
Author Organization [facility] Address [facility] [place] [address] Care Team Providers Care Laboratory Administrative Director Name Role Phone Chasity Gimenez MD Primary Care Provider [phone] Encounter Details Date Type Department Care Team (Late Contact Info) Description 08/11/2022 [facility] [place] [address] [facility] Results Social History Tobacco Use Types Packs/Day Years Used Date Smoking Tobacco: Never Smokeless Tobacco: Never Comments:Counseled by Dr Mirna yanez Alcohol Use Standard Drinks/Week Comments Yes 1.7 (1 standard drink = 0.6 oz p ure alcohol) 1 bottle of wine per week PHQ-2 Answer Date Recorded Patient Health Questionnaire-2 Score 0 08/08/2022 Comments No Sex and Gender Information Value Date Recorded Sex Assigned at Female 07/01/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 No / Unsure 08/08/2022 10:41 AM CDT documented as of this encounter Plan of Treatment Upcoming Encounters Date Type Department Care Team (Late Contact Info) Description 12/13/2024 1:20 PM CDT [facility] [place] [address] [facility] [address] [place] [address] Chasity Gimenez MD [address] [facility] [address] [place] [address] documented as of this encounter Visit Diagnoses Not on filedocumented in this encounter Care Teams Laboratory Administrative Director Relationship Specialty Start Date End Date Chasity Gimenez MD [address] [facility] [address] [place] [address] PCP - General INTERNAL MEDICINE 07/05/22 documented as of this encounter
--- OUTSIDE RECORDS SUMMARY | 2024-12-03 20:21 | XMS_ITS | Encounter Summary ---
Author Organization [facility] Address [facility] [place] [address] Care Team Providers Care [employer] Principal Name Role Phone Chasity Gimenez MD Primary Care Provider [phone] Encounter Details Date Type Department Care Team (Late st Contact Info) Description 05/19/2023 My[facility] [place] [address] [place] [address] [id number] Chasity Gimenez MD [address] [place] [address] [phone] sinus infection Social History Tobacco Use Types Packs/Day Years Used Date Smoking Tobacco: Never Smokeless Tobacco: Never Comments:Counseled by Dr Mirna yanez Alcohol Use Standard Drinks/Week Comments Not Currently 0 (1 standard drink = 0.6 oz pur e alcohol) 1 bottle of wine per week PHQ-2 Answer Date Recorded Patient Health Questionnaire-2 Score 0 08/08/2022 Comments No Sex and Gender Information Value Date Recorded Sex Assigned at Female 07/01/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 Sex Female 3:51 PM [employer]LE [employer] WHEAT FARMER Gender Identity Female 07/01/2024 7:17 AM [employer]LE AND WHEAT FARMER Sexual Orientation Straight 07/01/2024 7: 17 AM C[employer]LE [employer] WHE[employer] FARMER documented as of this encounter Plan of Treatment Upcoming Encounters Date Type Department Care Team (Late st Contact Info) Description 12/13/2024 1:20 PM CDT [facility] [place] [address] [address] [place], [place] [id number] Chasity Gimenez MD [address] [place], [place] [address], [place] [address] documented as of this encounter Visit Diagnoses Not on filedocumented in this encounter Care Teams [employer] Principal Relationship Specialty Start Date End Date Chasity Gimenez MD [address] [facility] [address] [place] [address] PCP - General INTERNAL MEDICINE 07/05/22 documented as of this encounter
--- OUTSIDE RECORDS SUMMARY | 2024-12-03 20:21 | XMS_ITS | Clinical Summary ---
Author Organization [facility] Address [address] [place] [address] Care Team Providers Care Sack Sorter Name Role Phone Chasity Gimenez MD Primary Care Provider [phone] Allergies Active Allergy Reactions Criticality Noted Date Comments Amoxicillin-Pot Clavulanate Rash High 03/24/2014 hives Cefdinir Rash,Swelling High 03/24/2014 Hives, swelling of hands and feet Clindamycin Rash Medium 07/05/2022 Latex Hives 07/05/2022 Penicillins Anaphylaxis High 08/21/2023 Vitamin B12 Anaphylaxis High 07/01/2024 Medications azelastine (ASTELIN) 0.1 % nasal sprayIndications: Environmental and seasonal allergies 1 spray by Nasal route 2 (two) times daily. Use in each nostril as directed 30 mL 1 4 Active cetirizine (ZYRTEC) 10 MG tabletIndications :Environmental and seasonal allergies take 1 tablet by mouth every day 90 tablet 1 5 Active Lisdexamfetamine Dimesylate 30 MG Chew TabIndications:At tention deficit hyperactivity disorder (ADHD), predominantly inattentive type Chew 30 mg by mouth daily. 30 tablet 5 Active Lisdexamfetamine Dimesylate 30 MG Chew TabIndications:At tention deficit hyperactivity disorder (ADHD), predominantly inattentive type Chew 30 mg by mouth daily. 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 Last Assessment & Plan: Clinically & biochemically euthyroid. At risk of developing hypothyroidism and other autoimmune diseases. 1. Obtain serum TSH following today's office appointment. If normal, repeat serum TSH level in six months (laboratory requisitions for [facility] given). If her serum TSH is normal at that time, repeat serum TSH annually, or as needed. 2. Reviewed the signs & symptoms of thyroid disease (and other autoimmune disease, i e diabetes mellitus, adrenal insufficiency, hypoparathyroidism) with Viviana and her mother at the time of the office visit 3. I will contact Viviana Main's mother by telephone (number: [phone]) with the test results after I have received them and any additional recommendations. 4. Return appointment in 6 month(s). 5. 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 D/w mother and Viviana who are in agreement. Encounters Date Type Department Care Team Description 10/09/2024 Scan [employer] HE[facility] INFO SRVCS Scanned, [facility] 10/03/2024 9:50 AM CDT Allied Health/Nurse Visit [facility] [place] [address] [address] [facility] [address] [place], [place] [id number] Chasity Gimenez MD Allergies (Physical labs ) 10/03/2024 Travel 2024 1:20 PM CDT [facility] [place] [address] [address] [facility] [address] [place] [address] Chasity Gimenez MD Follow Up; Attention Deficit Disorder; Physical; Allergies (/); Eye Problem; Sty 2024 Results Follow-Up [facility] - [address] [place] [address] Chasity Gimenez MD URINALYSIS AUTO DIP, CBC W/DIFF AUTOMATED, COMPREHENSIVE METABOLIC PANEL, Additional followed-up results: 4 2024 Travel from Last 3 Months Immunizations Immunization Administration Dates Next Due HPV GARDASIL 9-VALENT 12/05/2022,08/08/2022,01/20 Hepatitis B (Generic: Adult) 01/29/2021 Hepatitis B (Recombivax Hb 10 Mcg) 02/20/2024 MMR (Generic) 1997 PFIZER COVID-19 (ORIGINAL FO RMULATION, PURPLE CAP) mRNA, LNP-S, PF, 30 MCG/0.3 ML DOSE 09/07/2020,08/24/2020 Tdap (Generic) 10/08/2023,01/29/2021 Varicella (Generic) 1997 Family History Medical History Relation Comments Hypertension Father Cancer Maternal Grandfather Hypertension Maternal Grandfather Cancer Maternal Grandmother Myelodysplastic syndrome Maternal Grandmother Thyroid Disease Maternal Grandmother Thyroid Disease Mother Relation Status Comments Father Alive Maternal Grandfather Maternal Grandmother Mother Alive Social History Tobacco Use Types Packs/Day Years Used Date Smoking Tobacco: Never Smokeless Tobacco: Never Tobacco Cessation:Counseling Given: Yes Comments:Counseled by Dr Gimenez Alcohol Use Standard Drinks/Week Comments Yes 1.7 (1 standard drink = 0.6 oz p ure alcohol) 1 bottle of wine per week PHQ-2 Answer Date Recorded Patient Health Questionnaire-2 Score 0 2024 Comments No Sex and Gender Information Value Date Recorded Sex Assigned at Female 07/01/2024 7:17 AM ENGINEERING TECHNOLOGIST Legal Sex Female 3:51 PM ENGINEERING TECHNOLOGIST Gender Identity Female 07/01/2024 7:17 AM ENGINEERING TECHNOLOGIST Sexual Orientation Straight 07/01/2024 7: 17 AM ENGINEERING TECHNOLOGIST Last Filed Vital Signs Vital Sign Reading Time Taken Comments Blood Pressure 127/82 2024 1:21 PM CDT Pulse 92 2024 1:21 PM CDT Temperature 36.3 C (97.4 F) 2024 1:21 PM CDT Respiratory Rate 18 2024 1:21 PM CDT Oxygen Saturation 100% 2024 1:21 PM CDT Inhaled Oxygen Concentration - - Weight 72.4 kg (159 lb 9.6 oz) 2024 1:21 PM CDT Height 170.2 cm (5' 7) 2024 1:21 PM CDT Body Mass Index 25 2024 1:21 PM CDT Plan of Treatment Upcoming Encounters Date Type Department Care Team (Late st Contact Info) Description 12/13/2024 1:20 PM CDT Office Visit [facility] - [address] [place], [place] [phone] Chasity Gimenez MD [address] [facility] [address] [place], [place] [id number] Health Maintenance Due Date Last Done Comments COVID-19 Vaccine (2023-2 5 season) 2024 09/07/2020, 08/24/2020, 08/03/2020 Hepatitis B Vaccines (2 of 3 - 19+ 3-dose series) 03/19/2024 02/20/2024, 01/29/2021 Annual Physical 2025 2024, 08/21/2023, 08/08/2022 Cervical Cancer Screening Pa p Smear (Age 21 to 29) Every 3 Years 04/10/2026 04/10/2023, 04/10/2023, 01/22/2020 Cervical Cancer Screening 04/10/2026 DTaP, Tdap and Td Vaccines ( 3 - Td or Tdap) 10/07/2033 10/08/2023, 01/29/2021 Hepatitis C Completed 08/08/2022 HPV Vaccines Completed 12/05/2022, 08/08/2022, 02/05/2014 PHQ-2 (Physician [place]) Completed 2024 Meningococcal B Vaccine Aged Out No l onger eligible based on patient's age to complete this topic Meningococcal Vaccine Aged Out No marcos johnson eligible based on patient's age to complete this topic Pneumococcal Vaccine: Pediatrics (0 to 5 Years) and At-Risk Patients (6 to 49 Years) Aged Out No longer eligible b ased on patient's age to complete this topic RSV Immunizations Under 20 Months Aged Out No longer eligible b ased on patient's age to complete this topic Procedures Procedure Name Priority Date/Time Associated Diagnosis Comments COLLECTION VENOUS BLOOD VENIPUNCTURE Routine 10/03/2024 10:00 AM CDT Annual physical exam HEMOGLOBIN, GLYCOSYLATED Routine 10/03/2024 9:50 AM CDT Annual physical exam General medical exam Drug therapy TSH W/REFLEX Routine 10/03/2024 9:50 AM CDT Annual physical exam General medical exam Drug therapy LIPID PANEL Routine 10/03/2024 9:50 AM CDT Annual physical exam General medical exam Drug therapy COMPREHENSIVE METABOLIC PANEL Routine 10/03/2024 9:50 AM CDT Annual physical exam General medical exam Drug therapy CBC W/DIFF AUTOMATED Routine 10/03/2024 9:50 AM CDT Annual physical exam General medical exam Drug therapy MG/PCCL UDS SCREEN Routine 10/03/2024 9: 50 AM CDT Annual physical exam General medical exam Drug therapy COLLECTION VENOUS BLOOD VENIPUNCTURE Routine 2024 1:43 PM CDT Annual physical exam General medical exam Drug therapy URINALYSIS AUTO DIP Routine 2024 Annual physical exam General medical exam Drug therapy OUTSIDE CYTOPATH CERV/VAG INTERPRET (PAP) 04/10/2023 HEPATITIS C ANTIBODY Routine 08/08/2022 11:48 AM CDT Annual physical exam General medical exam Screening for diabetes mellitus Encounter for hepatitis C screening test for low risk patient from Last 3 Months or Most Recently Relevant to Health Maintenance Results * (ABNORMAL) MG/PCCL UDS SCREEN (10/03/2024 9:50 AM CDT) FENTANYL SCREEN (U) NEGATIVE <0.5 ng/mL [facility] [place] Comment: See Note A See Note A MORPHINE (U) NEGATIVE <10 ng/mL [facility] [place] Comment: See Note A See Note A AMPHETAMINES PM POSITIVE(A) <500 ng/mL [facility] [place] Comment: See Note A See Note A BARBITURATES PM (U) NEGATIVE <300 ng/mL [facility] [place] Comment: See Note A See Note A BENZODIAZEPINES PM (U) NEGATIVE <100 ng/mL [facility] [place] Comment: See Note A See Note A COCAINE METABOLITE PM (U) NEGATIVE <150 ng/mL [facility] [place] Comment: See Note A See Note A MARIJUANA METABOLITE PM (U) POSITIVE(A) <20 ng/mL [facility] [place] Comment: See Note A See Note A METHADONE PM (U) NEGATIVE <100 ng/mL [facility] [place] Comment: See Note A See Note A OPIATES PM (U) NEGATIVE <100 ng/mL [facility] [place] Comment: See Note A See Note A OXYCODONE PM (U) NEGATIVE <100 ng/mL [facility] [place] Comment: See Note A See Note A CREATININE RANDOM (U) 131.5 > or = 20.0 mg/dL [facility] [place] pH PM (U) 5.4 4.5 - 9.0 [facility] [place] OXIDANT NEGATIVE <200 mcg/mL [facility] [place] NOTE [facility] Comment: This drug testing is for medical treatment only. Analysis was performed as non-forensic testing and these results should be used only by healthcare providers to render diagnosis or treatment, or to monitor progress of medical conditions. Note A: The results are presumptive; based only on screening methods, and they have not been confirmed by a definitive method. LDT Notes: Confirmation tests were developed and their analytical performance characteristics have been determined by [employer]. It has not been cleared or approved by the FDA. This assay has been validated pursuant to the CLIA regulations and is used for clinical purposes. Healthcare Providers needing Interpretation assistance, please contact us at [phone] ( ) M-F, 8am to 10pm EST URINE SPECIMEN / Unknown 10/03/2024 9:50 AM CDT 10/04/2024 1:40 AM CDT Narrative Resulting Agency Comment Performing Organization Information: Site ID: [id number] Name: [facility] Address: [address] [place] [address] Director: Isma Cary Site ID: [id number] Name: [facility] Address: [address] [place] [address] Director: Dayanna Allen MD us Chasity Gimenez MD URINE ORDERABLES Final Result [facility] [place] [address] [place] [address] [facility] [address] [place] [address], * TSH W/REFLEX (10/03/2024 9:50 AM CDT) TSH 1.939 0.358 - 3.740 uIU/ML 10/03/2024 8:25 PM CDT [facility] 10/03/2024 9:50 AM CDT us Chasity Gimenez MD LABORATORY Final Result Performing Organization Address City/[facility]/ZIP Co de Phone Number [facility] [address] [place] [address], [place] [phone] * HEMOGLOBIN, GLYCOSYLATED (10/03/2024 9:50 AM CDT) HGB A1C 4.9 4.5 - 6.2 % 10/03/2024 8:07 PM CDT [facility] ESTIMATED AVG GLUCOSE 94 74 - 106 MG/DL 10/03/2024 8:07 PM CDT [facility] 10/03/2024 9:50 AM CDT us Chasity Gimenez MD LABORATORY Final Result -[facility] [address] [place] [address], * (ABNORMAL) COMPREHENSIVE METABOLIC PANEL (10/03/2024 9:50 AM CDT) [facility] SODIUM S/P/B 141 136 - 145 MMOL/L 10/03/2024 8:25 PM CDT -[facility] POTASSIUM S/P/B 4.3 3.5 - 5.1 MMOL/L 10/03/2024 8:25 PM CDT [facility] CHLORIDE S/P/B 105 98 - 107 MMOL/L 10/03/2024 8:25 PM CDT -[facility] CO2 26.2 21 - 32 MMOL/L 10/03/2024 8:25 PM CDT -[facility] GLUCOSE 82 70 - 99 MG/DL 10/03/2024 8:25 PM CDT -[facility] BUN 8 7 - 18 MG/DL 10/03/2024 8:25 PM CDT -[facility] CREATININE S/P/B 0.76 0.55 - 1.02 MG/DL 10/03/2024 8:25 PM CDT -[facility] CALCIUM S/P/B 9.1 8.4 - 10.5 MG/DL 10/03/2024 8:25 PM CDT -[facility] BILIRUBIN TOTAL S/P/B 0.4 0.2 - 1.0 MG/DL 10/03/2024 8:25 PM CDT [facility] ALKALINE PHOSPHATASE S/P/B 83 37 - 98 U/L 10/03/2024 8:25 PM CDT -[facility] AST 43(H) 15 - 37 U/L 10/03/2024 8:25 PM CDT -[facility] ALT 58 14 - 59 U/L 10/03/2024 8:25 PM CDT [facility] TOTAL PROTEIN S/P/B 7.3 6.4 - 8.2 G/DL 10/03/2024 8:25 PM CDT [facility] ALBUMIN S/P/B 4.0 3.4 - 5.0 G/DL 10/03/2024 8:25 PM CDT [facility] ANION GAP 9.8 5 - 15 MMOL/L 10/03/2024 8:25 PM CDT [facility] Comment:REFERENCE RANGE NOT ESTABLISHED OSMOLALITY (CALC) 289 MOSM/KG 025 8:25 PM CDT [facility] Comment:REFERENCE RANGE NOT ESTABLISHED GFR ESTIMATE >90 >90 ML/MIN/1. 73 M2 10/03/2024 8:25 PM CDT [facility] GFR NOTES GFR REFERENCE S: 10/03/2024 8:25 PM T [facility] Comment: THE ESTIMATED GFR IS CALCULATED USING THE 2020 CKD-EPI EQUATION. THE FOLLOWING CATEGORIES FOR GRADING RENAL FUNCTION ARE RECOMMENDED BY THE INTERNATIONAL SOCIETY OF NEPHROLOGY (KDIGO 2012 CLINICAL PRACTICE GUIDELINE). G1,NORMAL OR HIGH: >89 ml/min/1.73 m2 G2,MILDLY DECREASED: 60-89 ml/min/1.73 m2 G3A,MILDLY TO MODERATELY DECREASED: 45-59 ml/min/1.73 m2 G3B,MODERATELY TO SEVERELY DECREASED: 30-44 ml/min/1.73 m2 G4,SEVERELY DECREASED: 15-29 ml/min/1.73 m2 G5,KIDNEY FAILURE: <15 ml/min/1.73 m2 10/03/2024 9:50 AM CDT Chasity Gimenez MD LABORATORY Final Result [facility] [address] [place] [address], [place] [phone] * (ABNORMAL) LIPID PANEL (10/03/2024 9:50 AM CDT) Pathologist [facility] CHOLESTEROL 226(H) <200 MG/DL 10/03/2024 8:25 PM CDT [facility] TRIGLYCERIDES 94 <150 MG/DL 10/03/2024 8:25 PM CDT [facility] HDL 94 >40 MG/DL 10/03/2024 8:25 PM CDT [facility] LDL-C 113(H) <100 MG/DL 10/03/2024 8:25 PM CDT [facility] VLDL CALCULATION 19 5 - 28 MG/DL 10/03/2024 8:25 PM CDT [facility] CHOL/HDL RATIO 2.4 0.0 - 4.0 10/03/2024 8:25 PM CDT [facility] LDL/HDL 1.2 0.41 - 2.13 10/03/2024 8:25 PM CDT [facility] NON HDL CHOLESTEROL 132 <140 MG/DL 10/03/2024 8:25 PM CDT [facility] 10/03/2024 9:50 AM CDT Chasity Gimenez MD LABORATORY Final Result [facility] [address] [place] [address], * (ABNORMAL) CBC W/DIFF AUTOMATED (10/03/2024 9:50 AM CDT) Pathologist [facility] WBC 6.34 4.00 - 10.80 x10'3/uL 10/03/2024 7:45 PM CDT [facility] RBC 4.20 4.10 - 5.40 x10'6/uL 10/03/2024 7:45 PM CDT [facility] HGB 13.8 12.0 - 16.0 G/DL 10/03/2024 7:45 PM CDT [facility] HCT 41.6 36.0 - 47.0 % 10/03/2024 7:45 PM CDT [facility] MCV 99.0 78.0 - 100.0 FL 10/03/2024 7:45 PM CDT [facility] MCH 32.9(H) 27.0 - 31.0 PG 10/03/2024 7:45 PM CDT [facility] MCHC 33.2 33.0 - 36.0 G/DL 10/03/2024 7:45 PM CDT [facility] RDW 12.3 11.5 - 14.5 % 10/03/2024 7:45 PM CDT [facility] PLT 248 150 - 350 x10'3/uL 10/03/2024 7:45 PM CDT [facility] MPV 10.5(H) 7.4 - 10.4 FL 10/03/2024 7:45 PM CDT [facility] DIFFERENTIAL TYPE AUTOMATED DIFFERENTIAL 10/03/2024 7:45 PM CDT [facility] NEUTROPHILS % 54.7 % 10/03/2024 7:45 PM CDT [facility] LYMPHOCYTES % 33.0 % 10/03/2024 7:45 PM CDT [facility] MONOCYTES % 9.3 % 10/03/2024 7:45 PM CDT [facility] EOSINOPHILS % 1.9 % 10/03/2024 7:45 PM CDT [facility] BASOPHILS % 0.9 % 10/03/2024 7:45 PM CDT [facility] IMMATURE GRANS % 0.2 % 10/03/2024 7:45 PM CDT [facility] ABS. NEUTROPHILS 3.47 1.60 - 8.30 x10'3/uL 10/03/2024 7:45 PM CDT [facility] ABS. LYMPHOCYTES 2.09 0.80 - 4.70 x10'3/uL 10/03/2024 7:45 PM CDT [facility] ABS. MONOCYTES 0.59 0.00 - 1.50 x10'3/uL 10/03/2024 7:45 PM CDT [facility] ABS. EOSINOPHILS 0.12 0.00 - 0.40 x10'3/uL 10/03/2024 7:45 PM CDT [facility] ABS. BASOPHILS 0.06 0.00 - 0.20 x10'3/uL 10/03/2024 7:45 PM CDT [facility] ABS. IMMATURE GRANULOCYTES 0.01 0.00 - 0.03 x10'3/uL 10/03/2024 7:45 PM CDT [facility] 10/03/2024 9:50 AM CDT Chasity Gimenez MD LABORATORY Final Result [facility] [address] [place] [address], * (ABNORMAL) URINALYSIS AUTO DIP (2024) COLOR (U) YELLOW YELLOW [address], [place] TRANSPARENCY CLEAR CLEAR [address], [place] GLUCOSE (U) NEGATIVE NEGATIVE MG/DL [facility], [place] BILIRUBIN (U) NEGATIVE NEGATIVE MG-[address], [place] KETONES MG/DL (U) NEGATIVE NEGATIVE MG/DL [address], [place] SPECIFIC GRAVITY (U) 1.020 1.001 - 1.035 [address], [place] BLOOD (U) NEGATIVE NEGATIVE [address], [place] U PH 7.5 5.0 - 9.0 [address], [place] PROTEIN (U) NEGATIVE NEGATIVE mg/dL [address], [place] UROBILINOGEN 0.2 0.2 - 1.0 EU/dL = mg/dL [address], [place] NITRITES NEGATIVE NEGATIVE MG/DL [facility], [facility] LEUKOCYTES (U) 1+ (SMALL)(A) NEGATIVE [facility]-[address], [place] URINE SPECIMEN OBTAINED BY CLEAN CATCH PROCEDURE / Unknown 2024 Chasity Gimenez MD URINE ORDERABLES Final Result Performing Organization Address City/[facility] Co de Phone Number [facility], [facility] [address] [place] [address], * PAP SMEAR WITH HPV (04/10/2023) 04/10/2023 [facility] Scanned SCANNING Final Resu lt * HEPATITIS C ANTIBODY (08/08/2022 11:48 AM CDT) HEPATITIS C AB NON-REACTI VE NON-REACT LOPEZ 08/08/2022 11:05 PM CDT [facility] Comment: ANTIBODIES TO HCV NOT DETECTED. DOES NOT EXCLUDE THE POSSIBILITY OF EXPOSURE TO HCV. 08/08/2022 11:4 8 AM CDT Chasity Gimenez MD LABORATORY Final Result Performing Organization Address City/[facility]/ZIP Co de Phone Number [facility] [address] [place] [address], [phone] from Last 3 Months or Most Recently Relevant to Health Maintenance Insurance [facility] Care Teams Sack Sorter Relationship Specialty Start Date End Date Chasity Gimenez MD [facility] [address] [place] [address] PCP - General INTERNAL MEDICINE 07/05/22
--- OUTSIDE RECORDS SUMMARY | 2024-12-03 20:21 | XMS_ITS | Encounter Summary ---
Author Organization [facility] Address [facility] [place] [address] Care Team Providers Care Director Loan Name Role Phone Chasity Gimenez MD Primary Care Provider [phone] Encounter Details Date Type Department Care Team (Late st Contact Info) Description 12/09/2022 Dental Kidz Message [facility] [address] [place] [address] [facility] Provider Vaccine Social History Tobacco Use Types Packs/Day Years [...] Sex Assigned at Female 07/01/2024 7:17 AM EMT/PARAMEDIC Legal Sex Female 3:51 PM EMT/PARAMEDIC Gender Identity Female 07/01/2024 7:17 AM EMT/PARAMEDIC Sexual Orientation Straight 07/01/2024 7: 17 AM EMT/PARAMEDIC documented as of this encounter Plan of Treatment Upcoming Encounters Date Type Department Care Team (Late st Contact Info) Description 12/13/2024 1:20 PM CDT [facility] [address] [place] [address] Chasity Gimenez MD [address] [place] [address] [phone] documented as of this encounter Visit Diagnoses Not on filedocumented in this encounter Care Teams Director Loan Relationship Specialty Start Date End Date Chasity Gimenez MD [facility] [address] [address] PCP - General INTERNAL MEDICINE 07/05/22 documented as of this encounter
--- OUTSIDE RECORDS SUMMARY | 2024-12-03 20:21 | XMS_ITS | Encounter Summary ---
Author Organization [facility] Address [facility] [place] [address] Care Team Providers Care Clarity Specialists Name Role Phone Chasity Gimenez MD Primary Care Provider [phone] Encounter Details Date Type Department Care Team (Late st Contact Info) Description 10/14/2022 MyChart Message [facility] [address] [address] [place], [place] [phone] Chasity Gimenez MD [address] [place] [address] [phone] [email or web address] Social History Tobacco Use Types Packs/Day Years [...] Sex Assigned at Female 07/01/2024 7:17 AM SPINDLE TESTER Legal Sex Female 3:51 PM SPINDLE TESTER Gender Identity Female 07/01/2024 7:17 AM SPINDLE TESTER Sexual Orientation Straight 07/01/2024 7: 17 AM SPINDLE TESTER documented as of this encounter Plan of Treatment Upcoming Encounters Date Type Department Care Team (Late st Contact Info) Description 12/13/2024 1:20 PM CDT [facility] [address] [address] [place], [place] [phone] Chasity Gimenez MD [address] [facility] [address] [place] [address] documented as of this encounter Visit Diagnoses Not on filedocumented in this encounter Care Teams Clarity Specialists Relationship Specialty Start Date End Date Chasity Gimenez MD [address] [facility] [address] [place] [address] PCP - General INTERNAL MEDICINE 07/05/22 documented as of this encounter
--- OUTSIDE RECORDS SUMMARY | 2024-12-03 20:21 | XMS_ITS | Clinical Summary ---
Author Organization [facility] Address [address] [place] [address] Care Team Providers Care Computing Tutor Name Role Phone Francine Dubon MD Primary Care Provider [phone] Source Comments [facility],non-owned Affiliates and Associated Physician Practices is amultiple site organization consisting of ambulatory clinics and hospital sitesin [place], [place], [place] and [place]. This disclosure is being madepursuant to the Care Everywhere program and may not contain all information available regarding this patient. Last updated 18.[facility] Allergies Active Allergy Reactions Criticality Noted Date Comments Augmentin Rash Low 03/24/2014 hives Cefdinir Rash,Swelling Low 03/24/2014 Hives, swelling of hands and feet Medications * Be aware that medications may not be up to date on this document. Alwaysverify current medications with the patient. 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 Assessment & Plan (03/27/2014 5:15 PM SOFTWARE QUALITY ASSURANCE ENGINEER): Clinically & biochemically euthyroid. At risk of [...] contact Viviana Main's mother by telephone (number: [phone]) with the test results after I have received them and any additional recommendations. 4. Return appointment in 6 month(s). 5. 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 D/w mother and Viviana who are in agreement. Family History Medical History Relation Name Comments Thyroid Disease Maternal Aunt hyperthyroi d Thyroid Disease Maternal Grandmother Thyroid Disease Maternal Uncle hypothyroi d Thyroid Disease Mother Diabetes Neg Hx Relation Name Status Comments Maternal Aunt Maternal Grandmother Maternal Uncle Mother Social History Tobacco Use Types Packs/Day Years Used Date Smoking Tobacco: Never Alcohol Use Standard Drinks/Week Comments No 0 (1 standard drink = 0.6 oz pur e alcohol) Comments No Sex and Gender Information Value Date Recorded Sex Assigned at Not on file Legal Sex Female 5:37 AM SOFTWARE QUALITY ASSURANCE ENGINEER Gender Identity Not on file Sexual Orientation Not on file Last Filed Vital Signs Vital Sign Reading Time Taken Comments Blood Pressure 100/60 03/24/2014 2:33 PM SOFTWARE QUALITY ASSURANCE ENGINEER Pulse 80 03/24/2014 2:33 PM SOFTWARE QUALITY ASSURANCE ENGINEER Temperature - - Respiratory Rate 20 03/24/2014 2:33 PM SOFTWARE QUALITY ASSURANCE ENGINEER Oxygen Saturation - - Inhaled Oxygen Concentration - - Weight 60.7 kg (133 lb 12 oz) 03/24/2014 2:33 PM SOFTWARE QUALITY ASSURANCE ENGINEER Height 168.7 cm (5' 6.42) 03/24/2014 2:33 PM CS T Body Mass Index 21.32 03/24/2014 2:33 PM SOFTWARE QUALITY ASSURANCE ENGINEER Plan of Treatment Health Maintenance Due Date Last Done Comments HIV SCREENING 09/14/2011 HEPATITIS C SCREENING 09/09/2014 DTAP/TDAP/TD VACCINES (1 - Tdap) 09/14/2015 HEPATITIS B VACCINE (1 of 3 - 19+ 3-dose series) 09/14/2015 HPV VACCINE (1 - 3-dose SCDM series) 09/14/2023 COVID-19 VACCINE (1 - 2023-2 5 season) 2024 DEPRESSION SCREENING 05/22/2024 INFLUENZA VACCINE (#1) 2025 ZOSTER VACCINE (1 of 2) 2046 HIB VACCINE Aged Out No longer eligi ble based on patient's age to complete this topic MENINGOCOCCAL (Group B) VACC INE SHARED DECISION-MAKING Aged Out No longer eligibl e based on patient's age to complete this topic MENINGOCOCCAL GROUPS A/C/Y/W VACCINE Aged Out No longer eligible b ased on patient's age to complete this topic PNEUMOCOCCAL VACCINE Aged Out No long er eligible based on patient's age to complete this topic Insurance [employer] Care Teams Computing Tutor Relationship Specialty Start Date End Date Francine Dubon MD [address] [place] [address] PCP - General Pediatrics 03/20/14
--- NOTE | 2024-12-03 20:56 | ED_ITS ---
HPI - Abdominal Pain General Chief Complaint: Abdominal Pain Stated Complaint: abd pain, R leg swollen, vaginal bleed Time Seen by Provider: 12/03/24 20:28 History of Present Illness HPI narrative: 29-year-old female presents emergency department for right lower quadrant abdominal pain that started today. No aggravating or alleviating factors. States she took 4 ibuprofen around today without improvement. Denies vomiting, diarrhea, urinary complaints. She is endorsing nausea. Denies prior abdominal surgeries. Pt is also reporting vaginal bleeding that started today. Patient states her LMP was 2 weeks ago. She states it is a normal period flow but she was not due to start her period for another week. Patient states she was taking Depo for 10 years but switched to a control pill 2 weeks ago. She denies vaginal discharge or concern for STDs. Patient states she put a tampon in at 4:00 p.m. and has not had to change it since. Patient is also endorsing right leg pain and swelling. She does endorse a history of a DVT when she was 16 years old after undergoing laparoscopic knee surgery. She is not currently anticoagulated. No known clotting disorders. She denies chest pain or dyspnea. Denies injury or trauma. States she is on her feet for long periods of time at work and notices the swelling gets worse after long periods of standing. Related Data Home Medications ?Medication ?Instructions ?Recorded ?Confirmed ?Last Taken ?Type lisdexamfetamine 20 mg capsule 20 mg PO DAILY 11/21/22 04/25/24 Unknown History (Shahriar) azelastine 137 mcg (0.1 %) nasal 1 spray intranasal BID 07/06/23 04/25/24 Unknown History spray cetirizine 10 mg tablet 10 mg PO DAILY 07/06/23 04/25/24 Unknown History montelukast 10 mg tablet 10 mg PO DAILY 07/06/23 04/25/24 Unknown History Allergies Allergy/AdvReac Type Severity Reaction Status Date / Time amoxicillin Allergy Unknown Hives Verified 12/03/24 20:54 cefdinir Allergy Unknown Hives Verified 12/03/24 20:54 clindamycin Allergy Unknown Hives Verified 12/03/24 20:54 latex Allergy Unknown Hives, Verified 12/03/24 20:54 Swelling clavulanic acid (From Allergy Hives Verified 12/03/24 20:54 Augmentin) vitamin B-12 AdvReac Severe Difficulty Uncoded 12/03/24 20:54 Breathing Review of Systems 2 Review of Systems: All systems reviewed & are unremarkable except as noted in HPI and below PMFSH Past Medical History Medical History Surveillance for Depo-Provera contraception Torn meniscus Left knee Elevated LFTs Low TSH level Vitamin D deficiency Cough Abnormal laboratory test result Concussion Surgical History Surgical History [place] teeth extracted History of arthroscopic knee surgery Left for torn meniscus Family History Family History Grandparent Carcinoma of colon Family history of lymphoma Father Alive and well Mother Alive and well Social History Social History Smoking status: Never smoker Tobacco type: cigarettes Second hand tobacco smoke exposure: No Additional smoking assessment comments: Patient works at a [employer] setting. Alcohol intake: current Alcohol use details: Social. 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 HEAD: Normocephalic, atraumatic. EYES: EOMI. ENT: Nares clear, no rhinorrhea or epistaxis. Mucous membranes moist. NECK: Supple. CHEST: Clear to auscultation. No respiratory distress. HEART: Regular rate and rhythm. No murmur heard. Normal peripheral pulses. ABDOMEN: Normoactive bowel sounds. Abdomen soft with tenderness to the right lower quadrant. No rebound or rigidity. No CVA tenderness. EXTREMITIES: Normal range of motion. No edema. No significant edema, erythema, warmth, crepitus or tenderness to the right lower extremity. DP pulses 2+. Sensation intact. Negative Homans sign. SKIN: Warm, dry, no rash. NEURO: No focal deficits. Alert and oriented x3 Course Vital Signs Vital signs: Vital Signs Temperature 98.9 F 12/03/24 20:20 Pulse Rate 107 H 12/03/24 20:20 Respiratory Rate 17 12/03/24 20:20 Blood Pressure 155/93 H 12/03/24 20:20 Pulse Oximetry 100 12/03/24 20:20 Oxygen Delivery Room Air 12/03/24 20:20 Temperature 98.9 F 12/03/24 20:20 Pulse Rate 107 H 12/03/24 20:20 Respiratory Rate 17 12/03/24 20:20 Blood Pressure 155/93 H 12/03/24 20:20 Pulse Oximetry 100 12/03/24 20:20 Oxygen Delivery Room Air 12/03/24 20:20 MDM - Abdominal Pain MDM Narrative Medical decision making narrative: 29-year-old female presents emergency department for multiple medical complaints. Patient is reporting right lower quadrant abdominal pain, abnormal uterine bleeding and concerns for DVT to the right lower extremity. See HPI for further history. Triage vitals with elevated blood pressure 155/93 and mild tachycardia 107. Patient is afebrile and nontoxic appearing and resting comfortably in exam bed. Exam is notable for the above. CBC with mild leukocytosis of 10.7. Hemoglobin is stable at 13.3. Coags normal. Chemistries with signs of dehydration with a bicarb of 17 anion gap of 18, fluids been provided. AST is mildly elevated at 49 ALT is 40, no prior for comparison. Alk-phos and bilirubin are within normal limits. Lipase is within normal limits. Urinalysis with 2+ ketonuria, again consistent with dehydration, fluids ongoing. No UTI. is negative. CT abdomen pelvis shows no acute intra abdominal or pelvic process. Specifically the gallbladder and appendix are normal. Pelvic ultrasound is unremarkable. Vascular flow present to both ovaries. Right lower extremity venous duplex shows no evidence of DVT. Patient updated on results. She received IV fluids and Zofran with improvement. She politely declined any medications for pain. Encouraged Tylenol ibuprofen as needed at home and follow-up with her PCP and OBGYN. Suspect dysfunctional uterine bleeding is to due to breakthrough bleeding from recently changed control. She was given strict ED return precautions. She is agreeable with the plan verbalized understanding. Discharged in stable condition. Lab Data 12/03/24 20:43 12/03/24 20:43 Labs: Lab Results 12/03/24 12/03/24 12/03/24 Range/Units 20:43 20:56 21:25 WBC 10.7 H (4.5-10.0) K/mm3 RBC 4.01 L (4.2-5.4) M/mm3 Hgb 13.3 (12.0-15.0) g/dL Hct 38.7 (37.0-47.0) % MCV 96.5 (80-100) fl MCH 33.2 (26-34) pg MCHC 34.4 (32-36) g/dl RDW 12.3 (11.5-14.5) % Plt Count 272 (150-375) k/mm3 MPV 9.3 (7.4-10.4) fl Immature Gran % (Auto) 0.3 (0-0.5) % Neut % (Auto) 67.6 (45.5-73.1) % Lymph % (Auto) 26.4 (18.3-44.2) % [place] % (Auto) 4.7 (2.6-8.5) % Eos % (Auto) 0.4 (0-4.4) % Baso % (Auto) 0.6 (0.2-1.2) % Lymph # (Auto) 2.84 (0.9-3.2) K/mm3 [place] # (Auto) 0.5 (0.1-0.6) K/mm3 Eos # (Auto) 0.0 (0-0.3) K/mm3 Baso # (Auto) 0.1 (0.0-0.1) K/mm3 Abs Immat Gran (auto) 0.03 (0.00-0.031) K/mm3 Absolute Neuts (auto) 7.3 H (1.3-6.7) K/mm3 Absolute Nucleated RBC 0.000 (0.0-0.012) K/mm3 Nucleated RBC % 0.0 (0.0-0.2) % PT 13.8 (11.1-14.7) Seconds INR 1.0 APTT 27.8 (22.3-36.8) Seconds Sodium 138 (137-145) mmol/L Potassium 3.5 (3.4-5.0) mmol/L Chloride 103 (98-107) mmol/L Carbon Dioxide 17 L (22-30) mmol/L Anion Gap 18 H (4-12) mmol/L BUN 8 (7-17) mg/dL Creatinine 0.86 (0.7-1.0) mg/dL Estim Creat Clear Calc 86 ml/min Estimated GFR > 60 (59 - ) Glucose 83 (65-110) mg/dL Calcium 9.3 (8.4-10.2) mg/dL Total Bilirubin 0.6 (0.2-1.3) mg/dL AST 49 H (14-36) U/L ALT 40 H (6-35) U/L Alkaline Phosphatase 78 (38-126) U/L Total Protein 8.6 H (6.3-8.2) g/dL Albumin 4.9 (3.5-5.1) g/dL Lipase 175 (23-300) U/L Urine Color Yellow (Yellow) Urine Appearance Clear (Clear) Urine pH 5.5 (5.0-9.0) Ur Specific [place] 1.030 (1.001-1.035) Urine Protein 1+ H (Negative) mg/dL Urine Glucose (UA) Negative (Negative) mg/dL Urine Ketones 2+ H (Negative) mg/dL Ur Blood (Man) Negative (Negative) Urine Nitrate Negative (Negative) Urine Bilirubin Negative (Negative) Urine Urobilinogen 1.0 (<2.0) mg/dL Leukocyte Esterase Rfl Negative (Negative) STEVE/UL Urine RBC 0-2 (0-2) /hpf Urine WBC 0-5 (0-3) /hpf Ur Squamous Epith Cells Occasional (Few) /hpf Urine Bacteria None seen /hpf Urine Casts 3-5 POC Urine HCG, Qual Negative (Negative) Imaging Data Radiologist's impression: ITS Impressions Abdomen/Pelvis CT 12/03/24 21:45 IMPRESSION: 1. No acute intra-abdominal/pelvic process. Specifically the gallbladder and appendix are normal. Venous Doppler Study 12/03/24 22:48 IMPRESSION: 1. No deep venous thrombosis in the right lower limb. Pelvis Ultrasound 12/03/24 22:49 IMPRESSION: 1. Normal pelvic ultrasound. Discharge Plan Discharge Clinical Impression: Abnormal uterine bleeding, Abdominal pain, right lower quadrant Patient Disposition: Home Condition: Stable Instructions: Antibiotic Form, Abnormal (Dysfunctional) Uterine Bleeding (ED), Abdominal Pain (ED) Additional Instructions: Please take Tylenol and ibuprofen as needed for pain. Take ondansetron as needed for nausea. Drink plenty of fluids. Follow-up closely with her OBGYN and primary care provider. Elevate your legs. Were compression stockings. Return to the emergency department if you develop fever, chest pain shortness of breath, worsening abdominal pain, new or worsening symptoms. Patient Language: Belarusian Prescriptions: New ondansetron 4 mg tablet,disintegrating 4 mg PO Q8H Qty: 14 0RF No Action cetirizine 10 mg tablet 10 mg PO DAILY montelukast 10 mg tablet 10 mg PO DAILY azelastine 137 mcg (0.1 %) aerosol,spray 1 spray INTRANASAL BID polymyxin B sulf-trimethoprim 10,000 unit- 1 mg/mL drops 1 drp EACH EYE Q3H 7 Days Qty: 10 0RF Rx Instructions: while awake; do not exceed 6 doses in 24 hours mupirocin 2 % ointment 1 applic topical BID 7 Days Qty: 22 0RF albuterol sulfate 90 mcg/actuation HFA aerosol inhaler 2 puff inhalation Q4-6H PRN (Reason: shortness of breath or wheezing) 30 Days Qty: 8.5 0RF fluconazole 150 mg tablet 150 mg PO Q72H Qty: 2 3RF Vyvanse 20 mg capsule 20 mg PO DAILY medroxyprogesterone 150 mg/mL syringe 150 mg IM [id number] Qty: 1 3RF Junel Fe 24 1 mg-20 mcg (24)/75 mg (4) tablet 1 tablet PO DAILY Qty: 84 0RF Follow-up/Referrals: Ammy,MD Chasity [Primary Care Provider] - Stand Alone Forms: Work/School Release IP
[2024-12-03 20:57] LABS: Hematocrit 38.7 % (37.0-47.0); Hemoglobin 13.3 g/dL (12.0-15.0); Immature Granulocyte Percent A 0.3 % (0-0.5); Lymphocytes Absolute Auto 2.84 K/mm3 (0.9-3.2); Mean Corpuscular HGB Conc 34.4 g/dl (32-36); Mean Corpuscular Hemoglobin 33.2 pg (26-34); Mean Corpuscular Volume 96.5 fl (80-100); Nucleated Red Blood Cells Absolute Auto 0.000 K/mm3 (0.0-0.012); Nucleated Red Blood Cells Perc 0.0 % (0.0-0.2); Platelet Count Result 272 k/mm3 (150-375); Red Blood Count 4.01 M/mm3 (4.2-5.4); White Blood Count 10.7 K/mm3 (4.5-10.0)
--- OUTSIDE RECORDS SUMMARY | 2024-12-03 21:02 | XMS_ITS | Encounter Summary ---
Author Organization [facility] Address [facility] [place] [address] Care Team Providers Care Measurement Analyst Name Role Phone Chasity Gimenez MD Primary Care Provider [phone] Encounter Details Date Type Department Care Team (Late st Contact Info) Description 05/19/2023 [facility] [address] [place] [id number] Chasity Gimenez MD [address] [place] [address] [phone] sinus infection Social History Tobacco Use Types [...] Sex Assigned at Female 07/01/2024 7:17 AM MANAGER FINANCIAL SERVICES Legal Sex Female 3:51 PM MANAGER FINANCIAL SERVICES Gender Identity Female 07/01/2024 7:17 AM MANAGER FINANCIAL SERVICES Sexual Orientation Straight 07/01/2024 7: 17 AM MANAGER FINANCIAL SERVICES documented as of this encounter Plan of Treatment Upcoming Encounters Date Type Department Care Team (Late st Contact Info) Description 12/13/2024 1:20 PM CDT [facility] [place] [address] [address] [place], [place] [id number] Chasity Gimenez MD [address] [place], [place] [address], [place] [address] documented as of this encounter Visit Diagnoses Not on filedocumented in this encounter Care Teams Measurement Analyst Relationship Specialty Start Date End Date Chasity Gimenez MD [address] [facility] [address] [place] [address] PCP - General INTERNAL MEDICINE 07/05/22 documented as of this encounter
--- OUTSIDE RECORDS SUMMARY | 2024-12-03 21:02 | XMS_ITS | Encounter Summary ---
Author Organization [facility] Address [facility] [place] [address] Care Team Providers Care Sole Painter Name Role Phone Chasity Gimenez MD Primary Care Provider Encounter Details Date Type Department Care Team (Late st Contact Info) Description 12/09/2022 [email or web address] Message Enc [facility] [address] [place] [address] [facility] Provider Vaccine Social History Tobacco Use Types [...] Sex Assigned at Female 07/01/2024 7:17 AM BARREL TESTER AND DRAINER Legal Sex Female 3:51 PM BARREL TESTER AND DRAINER Gender Identity Female 07/01/2024 7:17 AM BARREL TESTER AND DRAINER Sexual Orientation Straight 07/01/2024 7: 17 AM BARREL TESTER AND DRAINER documented as of this encounter Plan of Treatment Upcoming Encounters Date Type Department Care Team (Late st Contact Info) Description 12/13/2024 1:20 PM CDT [facility] [address] [place] [address] Chasity Gimenez MD [address] [place] [address] [phone] documented as of this encounter Visit Diagnoses Not on filedocumented in this encounter Care Teams Sole Painter Relationship Specialty Start Date End Date Chasity Gimenez MD [facility] [address] PCP - General INTERNAL MEDICINE 07/05/22 documented as of this encounter
--- OUTSIDE RECORDS SUMMARY | 2024-12-03 21:02 | XMS_ITS | Clinical Summary ---
Author Organization [facility] Address [address] [place] [address] Care Team Providers Care Vehicle Cost Engineer Name Role Phone Francine Dubon MD Primary Care Provider [phone] Source Comments [facility],non-owned Affiliates and Associated Physician Practices is amultiple site organization consisting of ambulatory clinics and hospital sitesin [place], [place], [place] and [place]. This disclosure is being madepursuant to the Care Everywhere program and may not contain all information available regarding this patient. Last updated 18.[facility] Allergies Active Allergy Reactions Criticality Noted Date [...] K. Assessment & Plan (03/27/2014 5:15 PM TECHNICAL PRODUCT MANAGER): Clinically & biochemically euthyroid. At risk of [...] contact Viviana Main's mother by telephone (number: [phone]) with the test results after I have [...] on file Legal Sex Female 5:37 AM TECHNICAL PRODUCT MANAGER Gender Identity Not on file Sexual Orientation Not on file Last Filed Vital Signs Vital Sign Reading Time Taken Comments Blood Pressure 100/60 03/24/2014 2:33 PM TECHNICAL PRODUCT MANAGER Pulse 80 03/24/2014 2:33 PM TECHNICAL PRODUCT MANAGER Temperature - - Respiratory Rate 20 03/24/2014 2:33 PM TECHNICAL PRODUCT MANAGER Oxygen Saturation - - Inhaled Oxygen Concentration - - Weight 60.7 kg (133 lb 12 oz) 03/24/2014 2:33 PM TECHNICAL PRODUCT MANAGER Height 168.7 cm (5' 6.42) 03/24/2014 2:33 PM CS T Body Mass Index 21.32 03/24/2014 2:33 PM TECHNICAL PRODUCT MANAGER Plan of Treatment Health Maintenance Due Date [...] patient's age to complete this topic Insurance [facility] [place] Address: [facility] [address] [place] [address] Care Teams Vehicle Cost Engineer Relationship Specialty Start Date End Date Francine Dubon MD [address] [place] [address] PCP - General Pediatrics 03/20/14
--- OUTSIDE RECORDS SUMMARY | 2024-12-03 21:02 | XMS_ITS | Clinical Summary ---
Author Organization [facility] Address [address] [place] [address] Care Team Providers Care Squad Leader Name Role Phone Chasity Gimenez MD Primary Care Provider [phone] Allergies Active Allergy Reactions Criticality Noted Date [...] contact Viviana Main's mother by telephone (number: [phone]) with the test results after I have received them and any additional recommendations. 4. Return appointment in 6 month(s). 5. 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 D/w mother and Viviana who are in agreement. Encounters Date Type Department Care Team Description 10/09/2024 Scan [facility] HE[facility] INFO SRVCS Scanned, [facility] 10/03/2024 9:50 AM CDT Allied Health/Nurse Visit [facility] [place] [address] [address] [place], [place] [id number] Chasity Gimenez MD Allergies (Physical labs ) 10/03/2024 Travel 2024 1:20 PM CDT [facility] [place] [address] [address] [place] [address] Chasity Gimenez MD Follow Up; Attention Deficit Disorder; Physical; Allergies (/); Eye Problem; Sty 2024 Results Follow-Up [facility] Medical [facility] Multispecialty Care - [address] [place] [address] Chasity Gimenez MD URINALYSIS AUTO DIP, CBC [...] Sex Assigned at Female 07/01/2024 7:17 AM PEN RULER OPERATOR Legal Sex Female 3:51 PM PEN RULER OPERATOR Gender Identity Female 07/01/2024 7:17 AM PEN RULER OPERATOR Sexual Orientation Straight 07/01/2024 7: 17 AM PEN RULER OPERATOR Last Filed Vital Signs Vital Sign Reading [...] Description 12/13/2024 1:20 PM CDT Office Visit [facility] Medical Group Multispecialty Care - [address] [place], [place] [id number] Chasity Gimenez MD [address] [facility] [address] [place], [place] [id number] Health Maintenance Due Date Last Done Comments [...] Vaccines Completed 12/05/2022, 08/08/2022, 02/05/2014 PHQ-2 (Physician [place]) Completed 2024 Meningococcal B Vaccine Aged Out [...] [facility] Comment: This drug testing is for medical [...] analytical performance characteristics have been determined by [employer]. It has not been cleared or approved by the FDA. This assay has been validated pursuant to the CLIA regulations and is used for clinical purposes. Healthcare Providers needing Interpretation assistance, please contact us at [phone] ( ) M-F, 8am to 10pm EST URINE SPECIMEN / Unknown 10/03/2024 9:50 AM CDT 10/04/2024 1:40 AM CDT Narrative Resulting Agency Comment Performing Organization Information: Site ID: [id number] Name: [facility] Address: [address] [place] [address] Director: Isma Cary Site ID: [id number] Name: [facility] Address: [address] [place] [address] Director: Dayanna Allen MD us Chasity Gimenez MD URINE ORDERABLES Final Result [facility] [place] [address] [place] [address] [facility] [address] [place] [address], * TSH W/REFLEX (10/03/2024 9:50 AM CDT) TSH 1.939 0.358 - 3.740 uIU/ML 10/03/2024 8:25 PM CDT [facility] 10/03/2024 9:50 AM CDT us Chasity Gimenez MD LABORATORY Final Result Performing Organization Address City/[facility]/ZIP Co de Phone Number [facility] [address] [place] [address], [place] [phone] * HEMOGLOBIN, GLYCOSYLATED (10/03/2024 9:50 AM CDT) HGB A1C 4.9 4.5 - 6.2 % 10/03/2024 8:07 PM CDT [facility] ESTIMATED AVG GLUCOSE 94 74 - 106 MG/DL 10/03/2024 8:07 PM CDT [facility] 10/03/2024 9:50 AM CDT us Chasity Gimenez MD LABORATORY Final Result [facility] [place] [address] [place] [address], * (ABNORMAL) COMPREHENSIVE METABOLIC PANEL (10/03/2024 9:50 AM CDT) [facility] SODIUM S/P/B 141 136 - 145 MMOL/L 10/03/2024 8:25 PM CDT -[facility] POTASSIUM S/P/B 4.3 3.5 - 5.1 MMOL/L 10/03/2024 8:25 PM CDT [facility] CHLORIDE S/P/B 105 98 - 107 MMOL/L 10/03/2024 8:25 PM CDT -[facility] CO2 26.2 21 - 32 MMOL/L 10/03/2024 8:25 PM CDT -[facility] GLUCOSE 82 70 - 99 MG/DL 10/03/2024 8:25 PM CDT -[facility] BUN 8 7 - 18 MG/DL 10/03/2024 8:25 PM CDT -[facility] CREATININE S/P/B 0.76 0.55 - 1.02 MG/DL 10/03/2024 8:25 PM CDT -[facility] CALCIUM S/P/B 9.1 8.4 - 10.5 MG/DL 10/03/2024 8:25 PM CDT -[facility] BILIRUBIN TOTAL S/P/B 0.4 0.2 - 1.0 MG/DL 10/03/2024 8:25 PM CDT [facility] ALKALINE PHOSPHATASE S/P/B 83 37 - 98 U/L 10/03/2024 8:25 PM CDT -[facility] AST 43(H) 15 - 37 U/L 10/03/2024 8:25 PM CDT -[facility] ALT 58 14 - 59 U/L 10/03/2024 8:25 PM CDT [facility] [place] TOTAL PROTEIN S/P/B 7.3 6.4 - 8.2 G/DL 10/03/2024 8:25 PM CDT [facility] ALBUMIN S/P/B 4.0 3.4 - 5.0 G/DL 10/03/2024 8:25 PM CDT [facility] ANION GAP 9.8 5 - 15 MMOL/L 10/03/2024 8:25 PM CDT [facility] Comment:REFERENCE RANGE NOT ESTABLISHED OSMOLALITY (CALC) 289 MOSM/KG 025 8:25 PM CDT [facility] Comment:REFERENCE RANGE NOT ESTABLISHED GFR ESTIMATE >90 >90 ML/MIN/1. 73 M2 10/03/2024 8:25 PM CDT [facility] GFR NOTES GFR REFERENCE S: 10/03/2024 8:25 PM T [facility] Comment: THE ESTIMATED GFR IS CALCULATED USING [...] Gimenez MD LABORATORY Final Result [facility] [address] [place] [address], [place] [phone] * (ABNORMAL) LIPID PANEL (10/03/2024 9:50 AM CDT) Pathologist [facility] CHOLESTEROL 226(H) <200 MG/DL 10/03/2024 8:25 PM CDT [facility] TRIGLYCERIDES 94 <150 MG/DL 10/03/2024 8:25 PM CDT [facility] HDL 94 >40 MG/DL 10/03/2024 8:25 PM CDT [facility] LDL-C 113(H) <100 MG/DL 10/03/2024 8:25 PM CDT [facility] VLDL CALCULATION 19 5 - 28 MG/DL 10/03/2024 8:25 PM CDT [facility] CHOL/HDL RATIO 2.4 0.0 - 4.0 10/03/2024 8:25 PM CDT [facility] LDL/HDL 1.2 0.41 - 2.13 10/03/2024 8:25 PM CDT [facility] NON HDL CHOLESTEROL 132 <140 MG/DL 10/03/2024 8:25 PM CDT [facility] 10/03/2024 9:50 AM CDT Chasity Gimenez MD LABORATORY Final Result [facility] [address] [place] [address], * (ABNORMAL) CBC W/DIFF AUTOMATED (10/03/2024 9:50 AM CDT) Pathologist [facility] WBC 6.34 4.00 - 10.80 x10'3/uL 10/03/2024 7:45 PM CDT [facility] RBC 4.20 4.10 - 5.40 x10'6/uL 10/03/2024 7:45 PM CDT [facility] HGB 13.8 12.0 - 16.0 G/DL 10/03/2024 7:45 PM CDT [facility] HCT 41.6 36.0 - 47.0 % 10/03/2024 7:45 PM CDT [facility] MCV 99.0 78.0 - 100.0 FL 10/03/2024 7:45 PM CDT [facility] MCH 32.9(H) 27.0 - 31.0 PG 10/03/2024 7:45 PM CDT [facility] MCHC 33.2 33.0 - 36.0 G/DL 10/03/2024 7:45 PM CDT [facility] RDW 12.3 11.5 - 14.5 % 10/03/2024 7:45 PM CDT [facility] PLT 248 150 - 350 x10'3/uL 10/03/2024 7:45 PM CDT [facility] MPV 10.5(H) 7.4 - 10.4 FL 10/03/2024 7:45 PM CDT [facility] DIFFERENTIAL TYPE AUTOMATED DIFFERENTIAL 10/03/2024 7:45 PM CDT [facility] NEUTROPHILS % 54.7 % 10/03/2024 7:45 PM CDT [facility] LYMPHOCYTES % 33.0 % 10/03/2024 7:45 PM CDT [facility] MONOCYTES % 9.3 % 10/03/2024 7:45 PM CDT [facility] EOSINOPHILS % 1.9 % 10/03/2024 7:45 PM CDT [facility] BASOPHILS % 0.9 % 10/03/2024 7:45 PM CDT [facility] IMMATURE GRANS % 0.2 % 10/03/2024 7:45 PM CDT [facility] ABS. NEUTROPHILS 3.47 1.60 - 8.30 x10'3/uL 10/03/2024 7:45 PM CDT [facility] ABS. LYMPHOCYTES 2.09 0.80 - 4.70 x10'3/uL 10/03/2024 7:45 PM CDT [facility] ABS. MONOCYTES 0.59 0.00 - 1.50 x10'3/uL 10/03/2024 7:45 PM CDT [facility] ABS. EOSINOPHILS 0.12 0.00 - 0.40 x10'3/uL 10/03/2024 7:45 PM CDT [facility] ABS. BASOPHILS 0.06 0.00 - 0.20 x10'3/uL 10/03/2024 7:45 PM CDT [facility] ABS. IMMATURE GRANULOCYTES 0.01 0.00 - 0.03 x10'3/uL 10/03/2024 7:45 PM CDT [facility] 10/03/2024 9:50 AM CDT Chasity Gimenez MD LABORATORY Final Result [facility] [address] [place] [address], * (ABNORMAL) URINALYSIS AUTO DIP (2024) COLOR (U) YELLOW YELLOW [address], [place] TRANSPARENCY CLEAR CLEAR MG[address], [place] GLUCOSE (U) NEGATIVE NEGATIVE MG/DL MG-[address], [place] BILIRUBIN (U) NEGATIVE NEGATIVE MG-[address], [place] KETONES MG/DL (U) NEGATIVE NEGATIVE MG/DL [address], [place] SPECIFIC GRAVITY (U) 1.020 1.001 - 1.035 [address], [place] BLOOD (U) NEGATIVE NEGATIVE MG-[address], [place] U PH 7.5 5.0 - 9.0 [address], [place] PROTEIN (U) NEGATIVE NEGATIVE mg/dL MG-[address], [place] UROBILINOGEN 0.2 0.2 - 1.0 EU/dL = mg/dL MG-[address], [place] NITRITES NEGATIVE NEGATIVE MG/DL [facility]-[address], [facility] LEUKOCYTES (U) 1+ (SMALL)(A) NEGATIVE MG-[address], [place] URINE SPECIMEN OBTAINED BY CLEAN CATCH PROCEDURE / Unknown 2024 Chasity Gimenez MD URINE ORDERABLES Final Result Performing Organization Address City/[facility] Co de Phone Number MG-[address], [facility] [address] [place] [address], * PAP SMEAR WITH HPV (04/10/2023) 04/10/2023 Doc [facility] Scanned SCANNING Final Resu lt * HEPATITIS C ANTIBODY (08/08/2022 11:48 AM CDT) HEPATITIS C AB NON-REACTI VE NON-REACT LOPEZ 08/08/2022 11:05 PM CDT [facility] Comment: ANTIBODIES TO HCV NOT DETECTED. DOES NOT EXCLUDE THE POSSIBILITY OF EXPOSURE TO HCV. 08/08/2022 11:4 8 AM CDT Chasity Gimenez MD LABORATORY Final Result Performing Organization Address City/[facility]/ZIP Co de Phone Number [facility] [address] [place] [address], [id number] from Last 3 Months or Most Recently Relevant to Health Maintenance Insurance [facility] Care Teams Squad Leader Relationship Specialty Start Date End Date Chasity Gimenez MD [facility] [facility] [address] [place] [address] PCP - General INTERNAL MEDICINE 07/05/22
--- OUTSIDE RECORDS SUMMARY | 2024-12-03 21:02 | XMS_ITS | Encounter Summary ---
Author Organization [facility] Address [facility] [place] [address] Care Team Providers Care Certified Income Tax Preparer Name Role Phone Chasity Gimenez MD Primary Care Provider [phone] Encounter Details Date Type Department Care Team (Late Contact Info) Description 08/11/2022 SourceTour Message Enc [facility] [address] [place] [address] [facility] Provider Results Social History Tobacco Use Types [...] Sex Assigned at Female 07/01/2024 7:17 AM CANVAS GOODS FABRICATOR Legal Sex Female 3:51 PM CANVAS GOODS FABRICATOR Gender Identity Female 07/01/2024 7:17 AM CANVAS GOODS FABRICATOR Sexual Orientation Straight 07/01/2024 7: 17 AM CANVAS GOODS FABRICATOR COVID-19 Exposure Response Date Recorded In the last 10 days, have yo u been in contact with someone who was confirmed or suspected to have Coronavirus/COVID-19? No / Unsure 08/08/2022 10:41 AM CDT documented as of this encounter Plan of Treatment Upcoming Encounters Date Type Department Care Team (Late Contact Info) Description 12/13/2024 1:20 PM CDT [facility] [place] [address] [facility] [address] [place] [address] Chasity Gimenez MD [address] [facility] [address] [place] [address] documented as of this encounter Visit Diagnoses Not on filedocumented in this encounter Care Teams Certified Income Tax Preparer Relationship Specialty Start Date End Date Chasity Gimenez MD [address] [facility] [address] [place] [address] PCP - General INTERNAL MEDICINE 07/05/22 documented as of this encounter
--- OUTSIDE RECORDS SUMMARY | 2024-12-03 21:02 | XMS_ITS | Encounter Summary ---
Author Organization [facility] Address [facility] [place] [address] Care Team Providers Care Broke Worker Name Role Phone Chasity Gimenez MD Primary Care Provider [phone] Encounter Details Date Type Department Care Team (Late st Contact Info) Description 10/14/2022 MyChart Message Enc [facility] [address] [address] [place], [place] [phone] Chasity Gimenez MD [address] [place] [address] [phone] [email or web address] Social History Tobacco Use Types Packs/Day [...] Sex Assigned at Female 07/01/2024 7:17 AM FORESTRY FACULTY MEMBER Legal Sex Female 3:51 PM FORESTRY FACULTY MEMBER Gender Identity Female 07/01/2024 7:17 AM FORESTRY FACULTY MEMBER Sexual Orientation Straight 07/01/2024 7: 17 AM FORESTRY FACULTY MEMBER documented as of this encounter Plan of Treatment Upcoming Encounters Date Type Department Care Team (Late st Contact Info) Description 12/13/2024 1:20 PM CDT [facility] [address] [address] [place], [place] [phone] Chasity Gimenez MD [address] [facility] [address] [place] [address] documented as of this encounter Visit Diagnoses Not on filedocumented in this encounter Care Teams Broke Worker Relationship Specialty Start Date End Date Chasity Gimenez MD [address] [facility] [address] [place] [address] PCP - General INTERNAL MEDICINE 07/05/22 documented as of this encounter
[2024-12-03 21:05] LABS: Add Urine Microscopic? YES; Appearance Urine Clear (Clear); Glucose Urine UA Negative (Negative); Leukocyte Esterase Ur Negative LEU/UL (Negative); Nitrate Urine Negative (Negative); Specific Grav Ur 1.030 (1.001-1.035)
[2024-12-03 21:15] LABS: Alanine Aminotransferase 40 U/L (6-35); Albumin Level 4.9 g/dL (3.5-5.1); Alkaline Phosphatase 78 U/L (38-126); Anion Gap 18 mmol/L (4-12); Aspartate Amino Transferase 49 U/L (14-36); Bilirubin,Total 0.6 mg/dL (0.2-1.3); Blood Urea Nitrogen 8 mg/dL (7-17); Calcium 9.3 mg/dL (8.4-10.2); Carbon Dioxide 17 mmol/L (22-30); Chloride 103 mmol/L (98-107); Estimated CRCL calculation 86 ml/min; Estimated Glomerular Filt Rate > 60; Glucose 83 mg/dL (65-110); Lipase 175 U/L (23-300); Potassium 3.5 mmol/L (3.4-5.0); Sodium 138 mmol/L (137-145); Total Protein 8.6 g/dL (6.3-8.2)
[2024-12-03] MEDS: SODIUM CHLORIDE 0.9% IV 1,000 ML 999 ML IV CONT (21:21)
[2024-12-03] MEDS: ONDANSETRON INJ 4 MG/2 ML VIAL IV PUSH (21:21)
[2024-12-03 21:27] LABS: BEDSIDEPREGUCG Negative (Negative)
[2024-12-03 22:04] LABS: INR 1.0; Partial Thromboplastin Time 27.8 Seconds (22.3-36.8); Prothrombin Time 13.8 Seconds (11.1-14.7)
--- NOTE | 2024-12-03 23:19 | PC.NURSE ---
Assumed care of pt. Report given by Ritika HAYDEN.
[2024-12-03 23:45] VITALS: TEMP 36.9
== END 2024-12-03 23:46 | disposition home or self-care (01) ==
PROVIDERS: Emergency Provider Physician Assistant; PCP Internal Medicine
DX: R10.31 Right lower quadrant pain (principal); N93.9 Abnormal uterine and vaginal bleeding, unspecified; M79.604 Pain in right leg; E55.9 Vitamin D deficiency, unspecified; Z86.718 Personal history of other venous thrombosis and embolism; Z79.3 Long term (current) use of hormonal contraceptives
CPT/HCPCS: 36415; 74177; 76856; 80053; 81001; 81025; 83690; 85025; 85610; 85730; 93971; 96361; 96374; 99284; J2405; J7030; Q9967